=== PATIENT | male | born 1940 | race Caucasian/White ===

== ENCOUNTER → 2017-01-30 | Outpatient (CLI) | payer BC, MEDICARE ==
[2017-01-30 09:29] LABS: EKG EKG PERFORMED
[2017-01-30 10:16] LABS: Appearance,Urine Clear (Clear); Bilirubin,Urine Negative (Negative); Glucose,Urine (UA) Negative (Negative); Ketones,Urine Negative (Negative); Leukocyte Esterase,Urine Negative (Negative); Nitrite,Urine Negative (Negative); Protein,Urine Negative (Negative); UA Billing (MACRO vs. MICRO) CHEM
[2017-01-30 10:17] LABS: CH 32.2; CHCM 32.4; HCT 40.2 % (39.0-53.0); HDW 2.39; HGB 13.3 gm/dL (13.0-17.5); MCHC 33.1 g/dL (31.0-37.0); MCV 99.8 fL (80.0-100.0); Mean Platelet Volume 8.3; RBC 4.03 m/uL (4.30-5.90); RDW 13.9 % (11.5-15.5); WBC 4.5 k/uL (3.8-10.6)
[2017-01-30 10:20] LABS: INR 1.1 (<1.2); Partial Thromboplastin Time 24.8 sec (22.0-30.0); Prothrombin Time 10.7 sec (9.0-12.0)
[2017-01-30 10:36] LABS: ALT 25 U/L (21-72); AST 23 U/L (17-59); Alkaline Phosphatase 74 U/L (38-126); Anion Gap 10 mmol/L; Blood Urea Nitrogen 29 mg/dL (9-20); Calcium 9.9 mg/dL (8.4-10.2); Carbon Dioxide 28 mmol/L (22-30); Chloride 106 mmol/L (98-107); Glucose 99 mg/dL (74-99); Non-African American GFR(MDRD) >60 (>60 ml/min/1.73 sqM); Potassium 5.2 mmol/L (3.5-5.1); Sodium 144 mmol/L (137-145); Total Bilirubin 1.3 mg/dL (0.2-1.3); Total Protein 8.5 g/dL (6.3-8.2)
== END | disposition home or self-care (01) ==
LOC: LABPAT 09:18
PROVIDERS: ATTEND Orthopaedic Surgery
DX: Z01.810 Encounter for preprocedural cardiovascular examination (principal); Z01.812 Encounter for preprocedural laboratory examination; Z79.01 Long term (current) use of anticoagulants
CPT/HCPCS: 36415; 80053; 81003; 85027; 85610; 85730; 86850; 86900; 86901; 87070; 93005

== ENCOUNTER 2017-02-07 06:40 | Inpatient (IN) | payer BC, MEDICARE ==
[2017-02-02 11:19] VITALS: BMI 22.5
[~2017-02-07 06:40] MED LIST: ACETAMINOPHEN TAB 500 MG TAB PO ONE; HYDROmorphone 1 MG/ML 1 ML SYRINGE IVP PRN; MELOXICAM 7.5 MG TAB PO ONE; MORPHINE SULFATE 10 MG/ML SYRINGE IV PRN; ONDANSETRON 4 MG/2 ML VIAL IVP PRN; ROPIVACAINE 246.25 MG, EPINEPHrine 0.5 MG, KETOROLAC 30 MG, cloNIDine HCL/PF 80 MCG, WA... MISCELLANE ONE; TRANEXAMIC ACID 1,000 MG in SODIUM CHLORIDE 0.9% 100 ML IVPB ONE; ceFAZolin IN SWFI 2 GM/20 ML SYRINGE IVP ONE
[2017-02-07] MEDS: LACTATED RINGERS 1,000 ML IV SCH ×2 (07:22→11:58)
[2017-02-07] MEDS ORDERED: LIDOCAINE 1% INJ 10MG/ML (20 ML MDV) ONE (08:42)
[2017-02-07] MEDS ORDERED: SUCCINYLCHOLINE CHLORIDE 100 MG/5 ML SYR IV ONE (08:42)
[2017-02-07] MEDS ORDERED: MIDAZOLAM 2 MG/2 ML VIAL ONE (08:42)
[2017-02-07] MEDS ORDERED: PHENYLEPHRINE-0.9% NACL SYG 1 MG/10 ML SYRINGE ONE (08:42)
[2017-02-07] MEDS ORDERED: SODIUM CHLORIDE 0.9% 100 ML BAG ONE (08:42)
[2017-02-07] MEDS ORDERED: ePHEDrine SULFATE/0.9% NACL/PF 50 MG/5 ML SYRINGE IV ONE (08:42)
[2017-02-07] MEDS ORDERED: PROPOFOL 10 MG/ML 20 ML VIAL IV ONE (08:42)
[2017-02-07] MEDS ORDERED: TRANEXAMIC ACID 1,000 MG/10 ML VIAL ONE (08:42)
[2017-02-07] MEDS ORDERED: HEPARIN SODIUM,PORCINE 10,000 UNIT/ML 1 ML VIAL ONE (08:42)
[2017-02-07] MEDS ORDERED: fentaNYL (PF) 50 MCG/ML 2 ML AMP ONE (08:42)
[2017-02-07] MEDS ORDERED: LACTATED RINGERS 1,000 ML BAG IV ONE (08:42)
[2017-02-07] MEDS ORDERED: MAGNESIUM HYDROXIDE 2,400 MG/10 ML CUP PO PRN (08:56)
[2017-02-07] MEDS ORDERED: DIAZEPAM 5 MG TAB PO PRN ×2 (08:56)
[2017-02-07] MEDS ORDERED: ONDANSETRON 4 MG/2 ML VIAL IVP PRN ×2 (08:56→14:35)
[2017-02-07] MEDS ORDERED: HYDROcodone/APAP 5-325MG 1 EACH TAB PO PRN ×2 (08:56)
[2017-02-07] MEDS ORDERED: hydrOXYzine PAMOATE 25 MG CAP PO PRN (08:56)
[2017-02-07] MEDS ORDERED: HYDROmorphone 1 MG/ML 1 ML SYRINGE IVP PRN ×2 (08:56)
[2017-02-07] MEDS ORDERED: NALOXONE 0.4 MG/ML 1 ML VIAL IV PRN (08:56)
[2017-02-07] MEDS ORDERED: MELOXICAM 7.5 MG TAB PO SCH (09:00)
[2017-02-07] MEDS ORDERED: ceFAZolin 3,000 MG in SODIUM CHLORIDE 0.9% IRRIGATIO 3,000 ML IRRIGATION ONE (09:33)
--- NOTE | 2017-02-07 11:55 | XR ---
EXAMINATION TYPE: XR Hip Limited RT DATE OF EXAM: 02/07/2017 CLINICAL HISTORY: Right hip pain and osteoarthritis. TECHNIQUE: Single AP portable view of the right hip is obtained immediately postoperatively. COMPARISON: None. FINDINGS: Metallic hardware from right hip arthroplasty is seen and appears satisfactory in alignment and position. There is evidence of recent surgery with subcutaneous gas noted laterally. IMPRESSION: Metallic hardware from total right hip arthroplasty is satisfactory in position.
[2017-02-07] MEDS: SODIUM CHLORIDE 0.9% 1,000 ML IV SCH (12:28)
[2017-02-07] MEDS: APIXABAN 5 MG TAB PO SCH ×2 (12:31→20:09)
[2017-02-07] MEDS: HYDROmorphone 1 MG/ML 1 ML SYRINGE IVP PRN ×2 (13:56→16:49)
--- NOTE | 2017-02-07 13:57 | P.OP ---
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 The articulation is Oxinium on polyethylene. Crushed cancellus allograft, 30 mL Anesthesia: [place] Surgeon: Cleveland Dent Human Resources Technician #1: Radha Ayers Estimated Blood Loss (ml): 300 (135 mL returned with Cell Saver) Pathology: none sent Condition: stable Disposition: PACU Indications for Procedure: This is a 76-year-old gentleman that presented to my office with pain in his right hip. He has had a prior right total hip arthroplasty approximately 30 years ago. 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 Informed consent was obtained. 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 Description of Procedure: Patient was seen and evaluated in the preoperative area, consent was reviewed, and the surgical site was marked with a skin marker. Patient was then brought to the operating room and given prophylactic antibiotics intravenously. 1 g of Tranexamic acid was also given. A spinal anesthetic was administered by the anesthesia department. The patient was then placed on the operative table and placed in the lateral decubitus position with the bony prominences well-padded. After the patient was positioned, it was noted that the spinal anesthetic had not set. The patient was then given a general anesthetic. The hip area was then prepped and draped in usual sterile fashion. A universal timeout was then performed, which confirmed the patient's name, surgical site, ALLERGIES, and procedure being performed. Next the incision site was located in the lateral aspect of the hip, centered at the tip of the greater trochanter.. The skin and subcutaneous tissues were sharply incised, with the prior incision removed. Incision was carefully dissected down to the fascia. This fascia was then incised in line with the incision. Next, a Charnley retractor was then placed in the abductors were identified. The anterior one third of the abductors was released off the trochanter and one large sleeve. The anterior hip capsule was then exposed. The capsule was then opened. The proximal femur was then visualized, as well as the prosthesis.. The hip was then gently dislocated. The femoral neck was then osteotomized just below the femoral prosthesis. The femoral prosthesis was then removed without incident. The femoral neck cut was then osteotomized at the appropriate level above the lesser trochanter. Attention was then turned to the acetabulum. The acetabular component was exposed and any remaining scar was excised. Using curved osteotomes, acetabular component was then freed from any surrounding bone and easily removed with an osteotome and a mallet. The bone loss was found to be minimal. The acetabular was then visualized, found have significant ostial lysis. Sequential reaming of the acetabulum was performed to a bed of bleeding cancellus bone. When the appropriate size was reached, a trial was then placed. The trial was then removed. 30 mL of crushed cortical cancellus bone graft was placed to fill any voids in the bone. Then the final implant was impacted at 20 of anteversion and 40 of abduction, and fully seated in the acetabulum. Multiple screws were then placed in the acetabulum. Next, the liner was then impacted, with a 20 elevated liner located in the anterior superior quadrant. Component locking was confirmed. Attention was then directed to the femur. The proximal femurs reexposed. Retractors were then placed. A box osteotome was used to lateralize the proximal femur. A baggage handler was then used to locate the femoral canal. Sequential broaching was then performed with appropriate size which afforded excellent fixation in the proximal femur. A trial was then placed with appropriate head and neck, and the hip was gently reduced. The leg lengths were checked and found to be equal. Hip was then taken through full range of motion, was stable throughout. Next, the hip was gently dislocated, and the trials were removed. Final implants were then impacted and the hip was again reduced. The leg lengths were again examined and found to be equal. The hip was also taken through range of motion, and found to be stable. The hip was then copiously irrigated with antibiotic solution with pulsatile lavage. The hip was then irrigated with Irrisept solution. The soft tissues were then injected with ropivacaine solution. A second dose of 1 g of Tranexamic acid was given. The abductors were then repaired with #5 Ethibond suture with drill holes to the bone. The fascia was closed with #2 strata fix suture. The subcutaneous tissue was closed with 3-0 Vicryl. The subcuticular tissue was closed with 30 strata fix suture. The skin was then closed with Dermabond glue, followed by a silver sterile dressing. The patient was then transferred to the recovery room in stable condition. The Asst.CHRISTOPHER Sanchez was required due to the complexity of surgery, and the need for skilled surgical supervisor for positioning, draping, exposure, retraction, and closure of the wound.and closure of the wound.
[2017-02-07] MEDS ORDERED: METOCLOPRAMIDE 5 MG/ML 2 ML VIAL IVP PRN (14:35)
[2017-02-07] MEDS: ceFAZolin IN SWFI 2 GM/20 ML SYRINGE IVP SCH (16:11)
[2017-02-07] MEDS ORDERED: SCOPOLAMINE 1.5MG/72HR PATCH TRANSDERM STA (16:31)
[2017-02-07] MEDS: SENNOSIDES-DOCUSATE SODIUM 1 EACH TAB PO SCH (20:09)
[2017-02-08] MEDS ORDERED: ceFAZolin IN SWFI 2 GM/20 ML SYRINGE IVP ONE (01:00)
[2017-02-08] MEDS: ATORVASTATIN 20 MG TAB PO SCH ×2 (03:48→21:22)
[2017-02-08] MEDS: ceFAZolin IN SWFI 2 GM/20 ML SYRINGE IVP SCH (03:48)
[2017-02-08] MEDS: SODIUM CHLORIDE 0.9% 1,000 ML IV SCH ×2 (03:48→21:27)
[2017-02-08] MEDS: HYDROmorphone 1 MG/ML 1 ML SYRINGE IVP PRN (04:51)
--- NOTE | 2017-02-08 06:02 | CONS ---
CONSULTATION DATE OF CONSULTATION: 02/07/2017 REASON FOR CONSULTATION: Medical management requested by Dr. Dent. CONSULTATION: This is a pleasant 76-year-old patient of Dr. Riddle. Chronic stable medical conditions include osteoarthritis, emphysema, has a history of atrial fibrillation. The patient underwent revision of right total hip arthroplasty. Sitting up in a chair. Pain is controlled. No nausea or vomiting. No chest pain or short of breath. Family members at the bedside. REVIEW OF SYSTEMS: CONSTITUTIONAL: None. HEENT: None. RESPIRATORY: None. CARDIOVASCULAR: None. GASTROINTESTINAL: None. GENITOURINARY: None. MUSCULOSKELETAL: Aches and pains different joints. DERMATOLOGICAL: None. HEMATOLOGICAL: None. LYMPHATIC: None. PSYCHIATRY: None. NEUROLOGICAL: None. PAST HISTORY: Atrial fibrillation, osteoarthritis, emphysema, aortic valve replacement, back pain. PAST SURGICAL HISTORY: Back surgery, aortic valve replacement, cardiac catheterization, bilateral heels spur, bilateral carpal tunnel surgery, right hip replacement, neck surgery for pinched nerve. SOCIAL HISTORY: The patient did smoke in the past. No alcohol. . Used to do farming and worked in the factory. FAMILY HISTORY: Cancer, type unknown. HOME MEDICATIONS: 1. Spiriva 1 capsule p.o. daily. 2. Zocor 40 mg q.h.s. 3. Multivitamin 1 tab p.o. daily. 4. Combivent 2 puffs b.i.d. p.r.n. 5. Eliquis 5 mg p.o. b.i.d. 6. Tylenol. ALLERGIES: Allergies to. DOBUTAMINE, VICODIN PHYSICAL EXAMINATION: On examination, temperature 97.5, pulse 54, respirations 16, blood pressure 97/49, pulse ox 96% on room air. GENERAL APPEARANCE: Average built, sitting up in a chair, comfortable, awake. EYES: Pupils equal. Conjunctivae normal. HENT: Oral cavity normal. NECK: JVD not raised. Mass not palpable. RESPIRATORY: Effort normal. LUNGS: Slightly decreased breath sounds. CARDIOVASCULAR: First and second sounds normal. No edema. ABDOMEN: Soft, nontender. Liver and spleen not palpable. LYMPHATIC: No lymph nodes palpable in neck or axillae. PSYCHIATRY: Alert and oriented x3. Mood and affect normal. NEUROLOGICAL: Pupils equal. Cranial nerves grossly intact. Power and sensation grossly intact. DERMATOLOGICAL: Dressing over the right hip incision. INVESTIGATIONS: EKG shows right bundle branch block. Blood work from 01/30/17 shows a white count of 4.5, hemoglobin 13.3. Potassium was 4.2, BUN 29, creatinine 1.08. ASSESSMENT: 1. Revision right total hip arthroplasty. 2. Paroxysmal atrial fibrillation currently in sinus rhythm. 3. Right bundle branch block. 4. Primary osteoarthritis multiple joints. 5. Emphysema in an ex-smoker. 6. History of aortic valve replacement. PLAN: Home medications will be resumed. The patient has been put back on Eliquis. Care was discussed with the patient and family members at the bedside. Thank you Dr. Dent. MMJOSEL / IJN: [id number] /
[2017-02-08 07:10] LABS: Basophils % (A) 0 %; CHCM 31.9; Eosinophils % (A) 0 %; HCT 26.2 % (39.0-53.0); HDW 2.46; Luc # (Auto) 0.05; Luc % (Auto) 1; Lymphocytes % (A) 19 %; MCH 32.7 pg (25.0-35.0); MCHC 32.4 g/dL (31.0-37.0); Macrocytosis Slight; Mean Platelet Volume 8.8; Monocytes # (A) 0.5 k/uL (0-1.0); Monocytes % (A) 9 %; Neutrophils # (A) 3.8 k/uL (1.3-7.7); Neutrophils % (A) 71 %; RBC 2.59 m/uL (4.30-5.90); WBC 5.3 k/uL (3.8-10.6)
[2017-02-08 07:15] LABS: HGB 8.5 gm/dL (13.0-17.5)
[2017-02-08] MEDS: IPRATROPIUM 0.5 MG/2.5 ML NEBU INHALATION SCH ×5 (08:00→20:26)
[2017-02-08] MEDS: APIXABAN 5 MG TAB PO SCH ×2 (08:08→21:22)
[2017-02-08] MEDS ORDERED: traMADol 50 MG TAB PO PRN (08:32)
--- NOTE | 2017-02-08 08:41 | P.PN ---
Subjective Progress Note Date: 02/08/17 This is a 76-year-old male who is status post revision right total hip arthroplasty. This is postoperative day #1. Family is at bedside and state he has been somewhat confused morning. Patient is seen and evaluated at bedside with Dr. Cleveland Dent. Patient states his pain has been under control. Family states he has only been out of bed and into a chair so far. Patient has no new complaints today. Objective - Vital Signs Vital signs: Vital Signs Temp 98.8 F 02/08/17 07:00 Pulse 61 02/08/17 00:53 Resp 16 02/08/17 07:00 BP 114/68 02/08/17 07:00 Pulse Ox 94 L 02/08/17 07:00 Intake & Output 02/07/17 02/08/17 02/08/17 18:59 06:59 18:59 Intake Total 1881 747.5 Output Total 500 Balance 1381 747.5 Weight 65.317 kg Intake: IV 1521 Intake, IV Titration 747.5 Amount Sodium Chloride 0.9% 1, 747.5 000 ml @ 65 mls/hr IV . [id number] [facility] Rx#:[id number] Oral 360 Output: Urine 200 Estimated Blood Loss 300 Other: Voiding Method Urinal - Exam Vital signs are stable. Patient is in no acute distress and is alert and oriented 3. Calf is soft and nontender. Dressing is clean, dry, and intact. Neurovascular status intact. Patient has full foot and ankle motion. - Labs CBC & Chem 7: 02/08/17 05:57 02/07/17 07:15 Labs: Abnormal Lab Results - Last 24 Hours (Table) 02/08/17 Range/Units 05:57 RBC 2.59 L (4.30-5.90) m/uL Hgb 8.5 L D (13.0-17.5) gm/dL Hct 26.2 L (39.0-53.0) % MCV 101.0 H (80.0-100.0) fL Plt Count 111 L (150-450) k/uL Assessment and Plan (1) Failed total hip arthroplasty Current Visit: Yes Status: Acute Code(s): T84.018A - BROKEN INTERNAL JOINT PROSTHESIS, OTHER SITE, INIT ENCNTR; Z96.649 - PRESENCE OF UNSPECIFIED ARTIFICIAL HIP JOINT SNOMED Code(s): 284678943 (2) Status post revision of total hip replacement Current Visit: Yes Status: Acute Code(s): Z96.649 - PRESENCE OF UNSPECIFIED ARTIFICIAL HIP JOINT SNOMED Code(s): 577572031 Plan: Continue routine postop care. Continue hip precautions with abductor pillow Continue antocoagulation. Weightbearing as tolerated with a walker Leave dressing in place for 1 week Likely discharge to rehab Monday.
[2017-02-08 11:27] LABS: ALT 27 U/L (21-72); AST 27 U/L (17-59); Alkaline Phosphatase 46 U/L (38-126); Anion Gap 7 mmol/L; Blood Urea Nitrogen 25 mg/dL (9-20); Calcium 8.5 mg/dL (8.4-10.2); Carbon Dioxide 25 mmol/L (22-30); Chloride 105 mmol/L (98-107); Glucose 119 mg/dL (74-99); Non-African American GFR(MDRD) >60 (>60 ml/min/1.73 sqM); Potassium 4.6 mmol/L (3.5-5.1); Sodium 137 mmol/L (137-145); Total Bilirubin 0.8 mg/dL (0.2-1.3); Total Protein 5.8 g/dL (6.3-8.2)
--- NOTE | 2017-02-08 11:45 | XR ---
EXAMINATION TYPE: XR chest 1V DATE OF EXAM: 02/08/2017 CLINICAL HISTORY: Extended care facility placement. TECHNIQUE: Single AP portable frontal view of the chest is obtained. COMPARISON: None FINDINGS: Exam is suboptimal due to rotation and portable technique. Sternal wires are present. Ther e is left basilar opacity. Small right pleural effusion is felt present. There is mild cardiomegaly w ith atherosclerotic thoracic aorta. Visualized osseous structures are intact. IMPRESSION: Cardiomegaly with small right pleural effusion and patchy left basilar atelectasis and/or infiltrate noted.
[2017-02-08] MEDS: METOPROLOL TARTRATE 25 MG TAB PO SCH ×2 (12:17→21:22)
--- NOTE | 2017-02-08 12:34 | P.CRDCN ---
History of Present Illness Consult date: 02/08/17 History of present illness: This is a 76-year-old male with past medical history significant for chronic atrial fibrillation on residential anticoagulation with eliquis, prosthetic aortic valve and hyperlipidemia. He follows regularly with Dr. Coyle as an outpatient. We have been asked to see him for an episode of tachycardia in the post-operative setting s/p right hip arthroplasty revision yesterday. He was apparently found per nursing staff to have a heart rate in 130's. EKG was performed and reveals a wide complex tachycardia with no clear discernible P- waves. He denies chest pain, shortness of breath, dizziness, palpitations, diaphoresis, nausea or vomiting. He is confused at the time of my exam. Daughter and are at the bedside and states this is not his baseline he is typically alert and oriented x3. He did receive IV dilaudid earlier this morning. Per the he has a history of atrial fibrillation with controlled rate. He has had episodes of fast heart rate while hospitalized and metoprolol has been prescribed but once he goes home he becomes dizzy and cannot tolerate the metoprolol. He saw Dr. Coyle prior to surgery and had an echo that revealed preserved LV function with EF 55%, moderately dilated LA and RV, mild-moderate TR, mild pulmonic regurgitation and physiologic prosthetic valvular regurgitation. Hgb 8.5, plt 111, potassium 4.6, magnesium pending, TSH 1.49. Review of Systems CONSTITUTIONAL: Denies fever. Denies chills. EYES: Denies blurred vision. Denies vision changes. Denies eye pain. EARS, NOSE, MOUTH & THROAT: Denies headache. Denies sore throat. Denies ear pain. CARDIOVASCULAR: Denies chest pain. Denies shortness of breath. Denies orthopnea. Denies PND. Denies palpitations. RESPIRATORY: Denies cough. GASTROINTESTINAL: Denies abdominal pain. Denies diarrhea. Denies constipation. Denies nausea. Denies vomiting. MUSCULOSKELETAL: Denies myalgias. INTEGUMENTARY: Denies pruitis. Denies rash. NEUROLOGIC: Denies numbness. Denies tingling. Denies weakness. PSYCHIATRIC: Denies anxiety. Denies depression. ENDOCRINE: Denies fatigue. Denies weight change. Denies polydipsia. Denies polyurina. GENITOURINARY: Denies burning, hematuria or urgency with micturation. HEMATOLOGIC: Denies bleeding. Past Medical History Past Medical History: Atrial Fibrillation, Osteoarthritis (OA) Additional Past Medical History / Comment(s): EMPHYSEMA, AORTIC VALVE REPLACEMENT.,BACK PAIN., HAS "BOIL LIKE" SORE ON LEFT ARM - DR ATTEMPTED TO DRAIN IT- CHECKED BY DR LING. History of Any Multi-Drug Resistant Organisms: None Reported Past Surgical History: Back Surgery, Cardiac Valve Replacement, Heart Catheterization, Hernia Repair, Joint Replacement, Orthopedic Surgery Additional Past Surgical History / Comment(s): aortic valve replacement, saturnino heel spurs, saturnino carpal tunnel, rt hip replacement, neck surgery for pinched nerve, revision trh Past Anesthesia/Blood Transfusion Reactions: Postoperative Nausea & Vomiting ( PONV) Past Psychological History: No Psychological Hx Reported Smoking Status: Former smoker Past Alcohol Use History: None Reported Additional Past Alcohol Use History / Comment(s): SMOKED 1-2 PPD. QUIT SMOKING IN THE 'S. Past Drug Use History: None Reported - Past Family History Brother(s) Family Medical History: Cancer Medications and Allergies Home Medications Medication Instructions Recorded Confirmed Type Ipratropium/Albuterol Sulfate 2 puff INHALATION RT-BID PRN 07/03/14 02/07/17 History [Combivent Respimat Inhaler] Simvastatin [Zocor] 40 mg PO HS 07/03/14 02/07/17 History Acetaminophen Tab [Tylenol] 1,000 mg PO BID PRN 07/07/14 02/07/17 History Apixaban [Eliquis] 5 mg PO BID 02/02/17 02/07/17 History Multivitamin [Men's Multi-Vitamin] 1 tab PO DAILY 02/02/17 02/07/17 History Tiotropium 18 Mcg/Puff [Spiriva] 1 cap INHALATION RT-DAILY PRN 02/02/17 History Allergies Allergy/AdvReac Type Severity Reaction Status Date / Time dobutamine Allergy Rapid Verified 02/02/17 10:35 Heart Rate hydrocodone bitartrate Allergy "felt like Verified 02/02/17 10:35 [From Vicodin] skin crawling" Physical Exam Vitals: Vital Signs Temp Pulse Resp BP Pulse Ox 02/08/17 08:57 130 H 02/08/17 08:00 130 H 16 02/08/17 07:00 98.8 F 16 114/68 94 L 02/08/17 00:53 98.1 F 61 16 92/50 96 02/07/17 19:43 97.5 F L 54 L 16 97/69 96 02/07/17 16:25 59 L 17 128/58 97 02/07/17 14:30 62 106/56 02/07/17 14:15 58 L 88/44 02/07/17 14:00 60 89/41 02/07/17 13:45 128 H 114/66 02/07/17 13:30 59 L 103/54 02/07/17 13:15 57 L 84/46 02/07/17 13:00 57 L 111/54 02/07/17 12:45 59 L 104/53 02/07/17 12:30 96.9 F L 59 L 16 101/66 02/07/17 12:00 56 L 18 114/56 95 02/07/17 11:39 60 18 126/61 95 02/07/17 11:24 61 24 135/63 98 02/07/17 11:09 98.7 F 59 L 16 138/62 99 Intake and Output 02/07/17 02/08/17 02/08/17 22:59 06:59 14:59 Intake Total 347.5 520 Output Total 200 Balance 347.5 520 -200 Intake: Intake, IV Titration 227.5 520 Amount Sodium Chloride 0.9% 1, 227.5 520 000 ml @ 65 mls/hr IV . [id number] [facility] Rx#:[id number] Oral 120 Output: Urine 200 Other: Voiding Method Urinal Urinal Weight 65.317 kg Patient Weight 02/09/17 06:59 Weight 65.317 kg GENERAL: This is a 76-year-old male in no apparent distress at the time of my examination. HEENT: Head is atraumatic, normocephalic. Pupils are equal, round. Sclerae anicteric. Conjunctivae are clear. Mucous membranes of the mouth are moist. Neck is supple. There is no jugular venous distention. No carotid bruit is heard. LUNGS: Clear to auscultation no wheezes, rales or rhonchi. No chest wall tenderness is noted on palpation or with deep breathing. Diminished HEART: Irregular rate and rhythm with crisp prosthetic valve sound throughout, no rubs or gallops. S1 and S2 heard. ABDOMEN: Soft, nontender. Bowel sounds are heard. No organomegaly noted. EXTREMITIES: 2+ peripheral pulses with no evidence of peripheral edema and no calf tenderness noted. NEUROLOGIC: Patient is awake, alert and oriented x2. Results 02/08/17 05:57 02/08/17 05:55 CBC 02/08/17 Range/Units 05:57 WBC 5.3 (3.8-10.6) k/uL RBC 2.59 L (4.30-5.90) m/uL Hgb 8.5 L D (13.0-17.5) gm/dL Hct 26.2 L (39.0-53.0) % Plt Count 111 L (150-450) k/uL Current Medications Generic Name Dose Route Start Last Admin Trade Name Freq PRN Reason Stop Dose Admin Apixaban 5 mg 02/07/17 11:15 02/08/17 08:08 Eliquis PO 5 mg BID DARÍO Administration Atorvastatin Calcium 20 mg 02/07/17 22:15 02/08/17 03:48 Lipitor PO Not Given HS DARÍO Diazepam 2.5 mg 02/07/17 08:56 Valium PO Q8HR PRN Mild Spasms Diazepam 5 mg 02/07/17 08:56 Valium PO Q8HR PRN Moderate to Severe Spasms Hydromorphone HCl 0.125 mg 02/07/17 08:56 Dilaudid IVP Q3HR PRN Pain Scale 1 to 3 Hydromorphone HCl 0.25 mg 02/07/17 08:56 Dilaudid IVP Q3HR PRN Pain Scale 4 to 6 Hydromorphone HCl 0.5 mg 02/07/17 08:56 02/08/17 04:51 Dilaudid IVP 0.5 mg Q3HR PRN Administration Pain Scale 7 to 10 Hydroxyzine Pamoate 25 mg 02/07/17 08:56 Vistaril PO Q4HR PRN Nausea, Anxiety, Pain Control Lactated Ringer's 1,000 mls @ 20 mls/hr 02/06/17 16:45 02/07/17 11:58 Lactated Ringers IV Not Given .Q24H DARÍO Sodium Chloride 1,000 mls @ 65 mls/hr 02/07/17 09:00 02/08/17 03:48 Saline 0.9% IV Not Given .[id number] [facility] Ipratropium Harrells 0.5 mg 02/07/17 22:15 02/08/17 08:00 Atrovent Nebulized INHALATION Not Given RT-QID [facility] Magnesium Hydroxide 2,400 mg 02/07/17 08:56 Milk Of Magnesia PO DAILY PRN Constipation Metoclopramide HCl 10 mg 02/07/17 14:35 02/07/17 14:43 Reglan IVP 10 mg Q6HR PRN Administration Nausea WHEN ZOFRAN INEFFECTIVE Metoprolol Tartrate 25 mg 02/08/17 11:15 Lopressor PO BID [facility] Naloxone HCl 0.2 mg 02/07/17 08:56 Narcan IV Q2M PRN Opioid Reversal Ondansetron HCl 4 mg 02/07/17 14:35 Zofran IVP Q6HR PRN Nausea And Vomiting Senna/Docusate Sodium 2 each 02/07/17 21:00 02/07/17 20:09 Senokot-S PO 2 each HS [facility] Administration Tramadol HCl 50 mg 02/08/17 08:32 Ultram PO Q6H PRN Pain Scale 1 to 5 Tramadol HCl 100 mg 02/08/17 08:32 Ultram PO QID PRN Pain Scale 6 to 10 Intake and Output 02/07/17 02/08/17 02/08/17 22:59 06:59 14:59 Intake Total 347.5 520 Output Total 200 Balance 347.5 520 -200 Intake: Intake, IV Titration 227.5 520 Amount Sodium Chloride 0.9% 1, 227.5 520 000 ml @ 65 mls/hr IV . [id number] [facility] Rx#:[id number] Oral 120 Output: Urine 200 Other: Voiding Method Urinal Urinal Weight 65.317 kg Patient Weight 02/09/17 06:59 Weight 65.317 kg 02/08/17 05:57 02/07/17 07:15 Assessment and Plan Assessment: ASSESSMENT 1. Post operative day #1 right hip arthroplasty revision 2. Chronic atrial fibrillation with rapid ventricular response on exterminator helper anticoagulation 3. History of prosthetic aortic valve 4. Hyperlipidemia PLAN From cardiology perspective, we recommend placing him on telemetry monitoring and adding a small dose of beta be for rate control. This has been discussed with the as a temporary solution and this will be re-evaluated once he has stabilized. Check electrolytes and TSH. Repeat EKG in the morning. Continue with apixaban as was previously ordered for anticoagulation. Consider decreasing IV pain medication to avoid further confusion and possible post- operative delirium. Further recommendations will be based upon clinical course. Thank you kindly for this consultation. Nurse Practitioner note has been reviewed, I agree with a documented findings and plan of care. Patient was seen and examined.
[2017-02-08] MEDS: LACTATED RINGERS 1,000 ML IV SCH (15:24)
[2017-02-08] MEDS: traMADol 50 MG TAB PO PRN ×2 (15:26→21:21)
--- NOTE | 2017-02-08 18:45 | P.PN ---
Progress Note - Text Progress Note Date: 02/08/17 DATE OF SERVICE: 02/08/2017 PRESENTING COMPLAINT: Revision of right total hip arthroplasty HISTORY OF PRESENT ILLNESS: 76-year-old patient who is status post revision of right total hip arthroplasty. Patient has a history of atrial fibrillation on long-term anticoagulation. INTERVAL HISTORY: 02/08/2017: Patient lying in bed, very restless confused, not at his baseline according to family who is present at the bedside. Patient's heart rate has been in the 130s , patient does have a history of chronic atrial fibrillation which has been controlled, cardiology consulted. Appetite is low, ate about 20% of his breakfast, unable to work with physical therapy at this time. REVIEW OF SYSTEMS: Done for constitutional ,cardiovascular, GI, pulmonary with relevant findings as above. CURRENT MEDICATIONS Eliquis 5 mg by mouth twice a day, Lipitor, Valium, Dilaudid, Vistaril, Lopressor, Senokot-S, Ultram. PHYSICAL EXAM VITAL SIGNS: 98.8, pulse 1:30, respiratory rate 16, blood pressure 114/68, oxygen saturation 94% on room air. GENERAL APPEARANCE: Lying in bed, restless and somewhat confused EYES: Pupils equal. Conjunctiva normal. NECK: JVD not raised. Mass not palpable. RESPIRATORY: Respiratory effort normal. Lungs diminished to auscultation. CARDIOVASCULAR: Irregular rhythm No edema. ABDOMEN: Soft. Liver and spleen not palpable. No tenderness. No mass palpable. PSYCHIATRY: Alert and oriented x3. Mood and affect normal. INVESTIGATIONS: Hemoglobin 8.5, TSH 1.49 ASSESSMENT: -Revision of right total hip arthroplasty. -Paroxysmal atrial fibrillation, uncontrolled -Right bundle branch block -Primary osteoarthritis of multiple joints, bilateral area -Emphysema in an ex-smoker. -History of aortic valve replacement. -Postoperative Delirium, likely due to anesthetic agents PLAN: Patient started on a beta be even though he has a sensitivity per family. This as a temporizing measure to see how patient tolerates. Continue Eliquis. Minimize the use of IV pain medication, reorient patient. Continue current medication and treatment plan. We will follow closely. FOR[employer] CONTROLLER/AIR OFFICER statement: Patient was seen and examined by nurse practitioner Jacy Pineda and all elements of the case discussed with attending Dr. Flaherty
[2017-02-08] MEDS: SENNOSIDES-DOCUSATE SODIUM 1 EACH TAB PO SCH (21:21)
--- NOTE | 2017-02-08 22:30 | PN ---
PROGRESS NOTE DATE OF SERVICE: 02/08/2017 ATTENDING NOTE: Patient was seen and examined by me. I discussed with my nurse practitioner, Ms. Pineda. The patient is sitting up comfortably. Pain is controlled. Tolerating his diet. EXAM: LUNGS: Distant breath sounds. CARDIOVASCULAR: Heart sounds muffled. Temperature 98.8, pulse 130, respirations 16, blood pressure 114/68. Additionally, the patient has been a bit confused earlier today. ASSESSMENT: Acute delirium, probably a combination of pain medications and surgery, increased heart rate. Will order an EKG. The patient has a known history of atrial fibrillation. Care was discussed the patient and and the family at the bedside. Keep a close eye and follow. I suspect the increased heart rate could be atrial fibrillation with rapid ventricular rate. MMODL / IJN: [id number] /
[2017-02-09] MEDS: SODIUM CHLORIDE 0.9% 1,000 ML IV SCH (02:21)
[2017-02-09 02:53] VITALS: RESP 16
[2017-02-09] MEDS: IPRATROPIUM 0.5 MG/2.5 ML NEBU INHALATION SCH ×4 (08:18→19:16)
--- NOTE | 2017-02-09 08:43 | P.PN ---
Subjective Progress Note Date: 02/09/17 This is a 76-year-old male who is status post revision right total hip arthroplasty. This is postoperative day #2. Family is at bedside and states the patient has been less confused today. Family states the patient has been up and walking with therapy. Patient has no new complaints today. Objective - Vital Signs Vital signs: Vital Signs Temp 98.1 F 02/09/17 08:11 Pulse 96 02/09/17 08:20 Resp 16 02/09/17 08:11 BP 112/63 02/09/17 08:11 Pulse Ox 94 L 02/09/17 08:11 Intake & Output 02/08/17 02/09/17 02/09/17 18:59 06:59 18:59 Intake Total 350 455 180 Output Total 600 201 Balance -250 254 180 Weight 65.317 kg Intake: IV 350 Sodium Chloride 0.9% 1, 350 000 ml @ 65 mls/hr IV . [id number] [facility] Rx#:[id number] Intake, IV Titration 455 Amount Sodium Chloride 0.9% 1, 455 000 ml @ 65 mls/hr IV . [id number] [facility] Rx#:[id number] Oral 180 Output: Urine 600 201 Uretheral (Vences) 400 Other: Voiding Method Urinal Toilet - Exam Vital signs are stable. Patient is in no acute distress and is alert and oriented 3. Calf is soft and nontender. Dressing is clean, dry, and intact. Neurovascular status intact. Patient has full foot and ankle motion. - Labs CBC & Chem 7: 02/08/17 05:57 02/08/17 05:55 Labs: Abnormal Lab Results - Last 24 Hours (Table) 02/08/17 Range/Units 05:55 BUN 25 H (9-20) mg/dL Glucose 119 H (74-99) mg/dL Total Protein 5.8 L (6.3-8.2) g/dL Albumin 3.1 L (3.5-5.0) g/dL Assessment and Plan (1) Failed total hip arthroplasty Current Visit: Yes Status: Acute Code(s): T84.018A - BROKEN INTERNAL JOINT PROSTHESIS, OTHER SITE, INIT ENCNTR; Z96.649 - PRESENCE OF UNSPECIFIED ARTIFICIAL HIP JOINT SNOMED Code(s): 739824947 (2) Status post revision of total hip replacement Current Visit: Yes Status: Acute Code(s): Z96.649 - PRESENCE OF UNSPECIFIED ARTIFICIAL HIP JOINT SNOMED Code(s): 485260691 Plan: Continue routine postop care. Continue hip precautions with abductor pillow Continue antocoagulation. Weightbearing as tolerated with a walker Leave dressing in place for 1 week Likely discharge to rehab Monday.
[2017-02-09] MEDS ORDERED: HYDROmorphone 0.5 MG/0.5 ML SYRINGE IVP PRN ×3 (08:52→08:53)
[2017-02-09] MEDS: APIXABAN 5 MG TAB PO SCH ×2 (08:56→21:49)
[2017-02-09] MEDS: METOPROLOL TARTRATE 25 MG TAB PO SCH ×2 (08:56→19:49)
[2017-02-09] MEDS: traMADol 50 MG TAB PO PRN (08:57)
--- NOTE | 2017-02-09 09:53 | P.PN ---
Subjective Progress Note Date: 02/09/17 Mr. Cabezas is a 76-year-old male who follows with Dr. Coyle as an outpatient. We are seeing him today in follow-up from initial consultation for chronic a-fib with rapid ventricular rate yesterday. We added lopressor 25 mg BID to his daily regimen yesterday and his heart rate has come down nicely overnight but is elevated again this morning to 110 with blood pressure 112/63. This was prior to medication administration. He is also less confused and agitated today. He is seen sitting up in the chair with family in the room. He is alert and oriented x3. Denies chest pain, dizziness, palpitations, diaphoresis, nausea or vomiting. He states he got mildly short of breath while doing physical therapy this morning which subsided after doing a breathing treatment. The plan is for possible discharge to [facility] tomorrow per the . He has been transitioned to PO pain medication in the form of tramadol. Objective - Vital Signs Vital signs: Vital Signs Temp 98.1 F 02/09/17 08:11 Pulse 96 02/09/17 08:20 Resp 16 02/09/17 08:11 BP 112/63 02/09/17 08:11 Pulse Ox 94 L 02/09/17 08:11 Intake & Output 02/08/17 02/09/17 02/09/17 18:59 06:59 18:59 Intake Total 350 455 180 Output Total 600 201 Balance -250 254 180 Weight 65.317 kg Intake: IV 350 Sodium Chloride 0.9% 1, 350 000 ml @ 65 mls/hr IV . [id number] [facility] Rx#:[id number] Intake, IV Titration 455 Amount Sodium Chloride 0.9% 1, 455 000 ml @ 65 mls/hr IV . [id number] [facility] Rx#:[id number] Oral 180 Output: Urine 600 201 Uretheral (Vences) 400 Other: Voiding Method Urinal Toilet - Exam GENERAL: Well-appearing, well-nourished and in no acute distress. NECK: Supple without JVD or thyromegaly. LUNGS: Breath sounds clear to auscultation bilaterally. Respiration equal and unlabored. No wheezes, rales or rhonchi. Diminished throughout. HEART: Irregular rate and rhythm with crisp prosthetic valve, no rubs or gallops. S1 and S2 heard. EXTREMITIES: Normal range of motion, no edema. No clubbing or cyanosis. Peripheral pulses intact and strong. - Labs CBC & Chem 7: 02/08/17 05:57 02/08/17 05:55 Labs: Abnormal Lab Results - Last 24 Hours (Table) 02/08/17 Range/Units 05:55 BUN 25 H (9-20) mg/dL Glucose 119 H (74-99) mg/dL Total Protein 5.8 L (6.3-8.2) g/dL Albumin 3.1 L (3.5-5.0) g/dL Assessment and Plan Assessment: ASSESSMENT 1. Post operative day #2 right hip arthroplasty revision 2. Chronic atrial fibrillation with rapid ventricular response on intermediate anticoagulation 3. History of prosthetic aortic valve 4. Hyperlipidemia PLAN Continue with lopressor 25 mg PO BID and apixaban for anticoagulation. Continue with telemetry monitoring at this time to evaluate for rapid ventricular response. Repeat EKG in the morning. Nurse Practitioner note has been reviewed, I agree with a documented findings and plan of care. Patient was seen and examined.
--- NOTE | 2017-02-09 17:27 | PN ---
PROGRESS NOTE DATE OF SERVICE: 02/09/17. PRESENT COMPLAINT: Right knee surgery. INTERVAL HISTORY: Patient is status post right knee surgery, doing well. The patient's heart rate is better controlled. Patient's delirious is now resolved. Did tolerate a diet, sitting up smiling on a chair. REVIEW OF SYSTEMS: Done for constitutional, cardiovascular, GI, pulmonary; relevant findings as above. CURRENT MEDICATIONS: Reviewed that include Lipitor, Eliquis, Lopressor. PHYSICAL EXAMINATION: Temperature 98.1, pulse 110, respiration 16, blood pressure 112/63, pulse 94% on room air. GENERAL APPEARANCE: Sitting up in a chair, smiling. EYES: Pupils equal. Conjunctivae normal. NECK: JVD not raised. Mass about palpable. RESPIRATORY: Effort normal. Lungs decreased breath sounds. CARDIOVASCULAR: Heart sounds irregular. No edema. ABDOMEN: Psych awake, answering questions appropriately. ASSESSMENT: 1. Revision right total knee arthroplasty. 2. Paroxysmal atrial fibrillation, somewhat better controlled. 3. Right bundle block. 4. Primary osteoarthritis multiple joints, bilateral. 5. Emphysema in an ex-smoker. 6. History of aortic valve replacement. 7. Postop delirium due to multiple issues, now resolved. PLAN: Continue medication and treatment plan. Patient overall doing much better. Patient also making much better urine. MMODL / IJN: [id number] /
[2017-02-09] MEDS: LACTATED RINGERS 1,000 ML IV SCH (18:47)
[2017-02-09] MEDS: SENNOSIDES-DOCUSATE SODIUM 1 EACH TAB PO SCH (21:19)
[2017-02-09] MEDS: ACETAMINOPHEN TAB 500 MG TAB PO PRN (21:19)
[2017-02-09] MEDS: ATORVASTATIN 20 MG TAB PO SCH (21:49)
[2017-02-10] MEDS: SODIUM CHLORIDE 0.9% 1,000 ML IV SCH ×2 (02:59→06:46)
[2017-02-10 07:27] LABS: Basophils % (A) 0 %; CH 32.7; CHCM 33.6; Eosinophils # (A) 0.1 k/uL (0-0.7); Eosinophils % (A) 1 %; HCT 25.4 % (39.0-53.0); HDW 2.78; HGB 8.3 gm/dL (13.0-17.5); Luc # (Auto) 0.13; Luc % (Auto) 2; Lymphocytes % (A) 16 %; MCH 31.9 pg (25.0-35.0); MCHC 32.6 g/dL (31.0-37.0); Mean Platelet Volume 8.2; Monocytes # (A) 0.5 k/uL (0-1.0); Monocytes % (A) 8 %; Neutrophils # (A) 4.4 k/uL (1.3-7.7); Neutrophils % (A) 73 %; RDW 13.1 % (11.5-15.5); WBC (Perox) 6.25
[2017-02-10] MEDS: IPRATROPIUM 0.5 MG/2.5 ML NEBU INHALATION SCH ×3 (07:42→16:42)
[2017-02-10] MEDS ORDERED: METOPROLOL TARTRATE 50 MG TAB PO SCH (09:00)
[2017-02-10] MEDS: APIXABAN 5 MG TAB PO SCH (09:01)
[2017-02-10] MEDS ORDERED: ACETAMINOPHEN TAB 500 MG TAB PO PRN (09:14)
[2017-02-10] MEDS ORDERED: IPRATROPIUM-ALBUTEROL 3 ML NEB INHALATION PRN (09:14)
--- NOTE | 2017-02-10 09:14 | P.DS ---
Providers Date of admission: 02/07/17 06:40 Expected date of discharge: 02/10/17 Attending physician: Cleveland Dent Consults: 02/07/17 08:56 Consult Physician Routine Consulting Provider: August Flaherty Consult Reason/Comments: medical management and anticoagulation Do you want consulting provider notified?: Yes 02/08/17 09:55 Consult Physician Routine Consulting Provider: Angelina Balbuena Consult Reason/Comments: afib, tachycardia Do you want consulting provider notified?: Already Contacted Primary care physician: Jean-Pierre Riddle - Discharge Diagnosis(es) (1) Failed total hip arthroplasty Current Visit: Yes Status: Acute (2) Status post revision of total hip replacement Current Visit: Yes Status: Acute Hospital Course: This is a 76-year-old male with known history of a failed right total hip arthroplasty. The patient presents for evaluation. After discussion and consideration patient elects to proceed with revision total hip arthroplasty. The patient is seen preoperatively by Dr. Dent and cleared for surgery. Patient is admitted to [facility] on 02/07/2017 for revision total hip arthroplasty. The procedures performed without complication or sequelae. The patient is doing well postoperatively. Labs and vital signs are stable on day of discharge. On day of discharge patient's hip incision is healing well. There is minimal erythema. There is no drainage noted at this time. There is minimal soft tissue swelling to the hip and thigh. Patient has full foot and ankle motion without difficulty or pain. Neurovascular status to the right lower extremity is intact. Patient is discharged to rehab in good condition. Please see med rec for accurate list of home medications. Plan - Discharge Summary Discharge Rx Participant: Yes New Discharge Prescriptions: New Acetaminophen [Tylenol Extra Strength] 500 mg PO TID #90 tablet traMADol HCl [Ultram] 50 mg PO Q6H PRN #90 tab PRN Reason: Pain Apixaban [Eliquis] 5 mg PO BID 30 Days #60 tab Sennosides-Docusate Sodium [Senokot-S] 1 tab PO BID #60 tablet No Action Ipratropium/Albuterol Sulfate [Combivent Respimat Inhaler] 2 puff INHALATION RT-BID PRN PRN Reason: Shortness Of Breath Simvastatin [Zocor] 40 mg PO HS Acetaminophen Tab [Tylenol] 1,000 mg PO BID PRN PRN Reason: Pain Tiotropium 18 Mcg/Puff [Spiriva] 1 cap INHALATION RT-DAILY PRN PRN Reason: Shortness Of Breath Apixaban [Eliquis] 5 mg PO BID Multivitamin [Men's Multi-Vitamin] 1 tab PO DAILY Discharge Medication List Ipratropium/Albuterol Sulfate [Combivent Respimat Inhaler] 2 puff INHALATION RT- BID PRN 07/03/14 [History] Simvastatin [Zocor] 40 mg PO HS 07/03/14 [History] Acetaminophen Tab [Tylenol] 1,000 mg PO BID PRN 07/07/14 [History] Apixaban [Eliquis] 5 mg PO BID 02/02/17 [History] Multivitamin [Men's Multi-Vitamin] 1 tab PO DAILY 02/02/17 [History] Tiotropium 18 Mcg/Puff [Spiriva] 1 cap INHALATION RT-DAILY PRN 02/02/17 [History ] Acetaminophen [Tylenol Extra Strength] 500 mg PO TID #90 tablet 02/10/17 [Rx] Apixaban [Eliquis] 5 mg PO BID 30 Days #60 tab 02/10/17 [Rx] Sennosides-Docusate Sodium [Senokot-S] 1 tab PO BID #60 tablet 02/10/17 [Rx] traMADol HCl [Ultram] 50 mg PO Q6H PRN #90 tab 02/10/17 [Rx] Follow up Appointment(s)/Referral(s): Cleveland Dent DO [Doctor of Osteopathic Medicine] - 2 Weeks Activity/Diet/Wound Care/Special Instructions: Weightbearing as tolerated with walker Leave dressing intact. Dressing may be removed by home care nurse in 7 days, . May shower with dressing on. Continue use of abductor pillow and hip precautions Follow-up with [facility] in 2 weeks, please call with any questions or concerns [phone] Discharge Disposition: TRANSFER TO SNF/ECF
--- NOTE | 2017-02-10 09:40 | P.PN ---
Subjective Progress Note Date: 02/10/17 Mr. Cabezas is a 76-year-old male who follows with Dr. Coyle as an outpatient. We are seeing him today in follow-up from initial consultation for chronic a-fib with rapid ventricular rate yesterday. We added lopressor 25 mg BID to his daily regimen initially and his heart rate was fluctuating yesterday and this was increased to 50 mg BID. Upon talking to family they are concerned with increasing this too much secondary to his complaints of dizziness in the past with this medication. Heart rate this morning 111 with blood pressure 131/ 73. He is alert and oriented x3 today. Family states he has come episodes of agitation again yesterday evening and is now refusing to go to rehab. Family is discussing the option of taking him home instead. Denies chest pain, dizziness, palpitations, diaphoresis, nausea or vomiting. His daughter states he told her he was dizzy yesterday while sitting in bed. Objective - Vital Signs Vital signs: Vital Signs Temp 98.4 F 02/10/17 07:11 Pulse 111 H 02/10/17 07:11 Resp 16 02/10/17 07:11 BP 131/73 02/10/17 07:11 Pulse Ox 96 02/10/17 01:10 Intake & Output 02/09/17 02/10/17 02/10/17 18:59 06:59 18:59 Intake Total 680 325 Output Total 1 200 Balance 679 125 Weight 65.317 kg Intake: IV 500 325 Sodium Chloride 0.9% 1, 500 325 000 ml @ 65 mls/hr IV . [id number] [facility] Rx#:[id number] Oral 180 Output: Urine 1 200 Other: Voiding Method Toilet Urinal Urinal # Voids 2 3 # Bowel Movements 1 - Exam GENERAL: Well-appearing, well-nourished and in no acute distress. NECK: Supple without JVD or thyromegaly. LUNGS: Breath sounds clear to auscultation bilaterally. Respiration equal and unlabored. No wheezes, rales or rhonchi. Diminished. HEART: Irregular rate and rhythm with crisp prosthetic valve, no rubs or gallops. S1 and S2 heard. EXTREMITIES: Normal range of motion, no edema. No clubbing or cyanosis. Peripheral pulses intact and strong. - Labs CBC & Chem 7: 02/10/17 06:34 02/08/17 05:55 Labs: Abnormal Lab Results - Last 24 Hours (Table) 02/10/17 Range/Units 06:34 RBC 2.60 L (4.30-5.90) m/uL Hgb 8.3 L (13.0-17.5) gm/dL Hct 25.4 L (39.0-53.0) % Plt Count 135 L (150-450) k/uL Assessment and Plan Assessment: ASSESSMENT 1. Post operative day #3 right hip arthroplasty revision 2. Chronic atrial fibrillation with rapid ventricular response on half-way anticoagulation 3. History of prosthetic aortic valve 4. Hyperlipidemia PLAN Discontinue Lopressor and start verapamil 80 mg TID for heart rate control. I have discussed this with the family and they are in agreement and understanding of the current plan. He should see Dr. Coyle in 1-2 weeks. The need and importance of inpatient physical therapy was also recommended. Nurse Practitioner note has been reviewed, I agree with a documented findings and plan of care. Patient was seen and examined.
[2017-02-10] MEDS: ACETAMINOPHEN TAB 500 MG TAB PO PRN ×2 (10:28→17:45)
[2017-02-10] MEDS: VERAPAMIL 80 MG TAB PO SCH ×2 (10:28→16:49)
[2017-02-10 14:56] VITALS: TEMP 98.2
[2017-02-10 16:01] VITALS: PULSE 73
--- NOTE | 2017-02-10 16:05 | P.PN ---
Progress Note - Text Progress Note Date: 02/10/17 DATE OF SERVICE: 02/10/2017 PRESENTING COMPLAINT: Revision of right total hip arthroplasty HISTORY OF PRESENT ILLNESS: 76-year-old patient who is status post revision of right total hip arthroplasty. Patient has a history of atrial fibrillation on long-term anticoagulation. INTERVAL HISTORY: 02/10/2017: Patient sitting up in a chair and daughter at the bedside, patient is able to answer simple straightforward questions but family states patient's mentation changes throughout the day. History of chronic atrial fibrillation, heart rate has been elevated. Cardiology following. Appetite improving, ate about 50% of his breakfast and about 75% of his lunch. Agreeable to work with physical therapy, plans to discharge to inpatient rehab. REVIEW OF SYSTEMS: Done for constitutional ,cardiovascular, GI, pulmonary with relevant findings as above. CURRENT MEDICATIONS Eliquis 5 mg by mouth twice a day, Lipitor, Valium, Dilaudid, Vistaril, Lopressor, Senokot-S, Ultram. Verapamil 80 mg by mouth 3 times a day PHYSICAL EXAM VITAL SIGNS: 98.8, pulse 1:30, respiratory rate 16, blood pressure 114/68, oxygen saturation 94% on room air. GENERAL APPEARANCE: Sitting up in a chair family at the bedside appears comfortable EYES: Pupils equal. Conjunctiva normal. NECK: JVD not raised. Mass not palpable. RESPIRATORY: Respiratory effort normal. Lungs diminished to auscultation. CARDIOVASCULAR: Irregular rhythm No edema. ABDOMEN: Soft. Liver and spleen not palpable. No tenderness. No mass palpable. PSYCHIATRY: Patient's mentation waxes and wanes on exam alert and oriented 3. Mood and affect normal. INTEGUMENT: Right hip incision covered with dry dressing. INVESTIGATIONS: Hemoglobin 8.3 ASSESSMENT: -Revision of right total hip arthroplasty. -Paroxysmal atrial fibrillation, somewhat better controlled -Right bundle branch block -Primary osteoarthritis of multiple joints, bilateral -Emphysema in an ex-smoker. -History of aortic valve replacement. -Postoperative Delirium, likely due to anesthetic agents, now resolved PLAN: Beta be discontinued and verapamil initiated by cardiology. Continue Eliquis. Continue to work with physical therapy. Patient to transfer today to inpatient rehab. MINK SLICER statement: Patient was seen and examined by nurse practitioner Jacy Pineda and all elements of the case discussed with attending Dr. Flaherty
[2017-02-10 16:22] VITALS: BP 92/64
[2017-02-10] MEDS: LACTATED RINGERS 1,000 ML IV SCH (17:47)
--- NOTE | 2017-02-10 20:59 | PN ---
PROGRESS NOTE ATTENDING NOTE: The patient was seen and examined by me. I discussed with the nurse practitioner, Ms. Pineda. The patient is doing well, sitting up, tolerating a diet. Family members at the bedside. Mentation has done well. Tolerating a diet. PHYSICAL EXAMINATION: Temperature 98.4, respiration 16, blood pressure 139/73, pulse ox 96% on room air. Sitting up, comfortable, smiling, answering questions. CARDIOVASCULAR: Heart sounds ABDOMEN: Soft, nontender. ASSESSMENT: Atrial fibrillation, rate better controlled. PLAN: Cardiology did switch the Lopressor to Verapamil. Overall patient is doing better. Getting Eliquis for his anticoagulation. Care was discussed with the family at the bedside. MMODL / IJN: [id number] /
[2017-02-10] MEDS ORDERED: APIXABAN 5 MG TAB PO SCH (21:00)
[2017-02-11] MEDS ORDERED: MULTIVITAMINS, THERA 1 EACH TAB PO SCH (12:00)
== END 2017-02-10 17:50 | DRG 467 ==
LOC: 2ORMAIN 06:40 → 3SUR 10:57
PROVIDERS: ADMIT Orthopaedic Surgery; ATTEND Orthopaedic Surgery
PROC: 0SR906A Replacement of Right Hip Joint with Oxidized Zirconium on Polyethylene Synthetic Substitute, Uncemented, Open Approach (ICD-10-PCS; principal; 2017-02-07 09:30)
PROC: 0SP90JZ Removal of Synthetic Substitute from Right Hip Joint, Open Approach (ICD-10-PCS; principal; 2017-02-07 09:30)
DX: T84.060A Wear of articular bearing surface of internal prosthetic right hip joint, initial encounter (principal); F05 Delirium due to known physiological condition; I48.0 Paroxysmal atrial fibrillation; J43.9 Emphysema, unspecified; I37.1 Nonrheumatic pulmonary valve insufficiency; I45.10 Unspecified right bundle-branch block; E78.5 Hyperlipidemia, unspecified; I07.1 Rheumatic tricuspid insufficiency; M19.91 Primary osteoarthritis, unspecified site; T41.45XA Adverse effect of unspecified anesthetic, initial encounter; Z95.2 Presence of prosthetic heart valve; Z87.891 Personal history of nicotine dependence; Z79.01 Long term (current) use of anticoagulants; Z79.899 Other long term (current) drug therapy; Z88.5 Allergy status to narcotic agent; Z88.8 Allergy status to other drugs, medicaments and biological substances; Y79.2 Prosthetic and other implants, materials and accessory orthopedic devices associated with adverse incidents
CPT/HCPCS: 71010; 73501; 80053; 83735; 84132; 84443; 85025; 86850; 86891; 86900; 86901; 88300; 93005; 94640

== ENCOUNTER 2020-06-11 04:16 | Inpatient (IN) | payer MEDICARE, BC ==
[2020-06-11] MEDS ORDERED: SODIUM CHLORIDE 0.9% 1,000 ML IV STA (04:18)
--- NOTE | 2020-06-11 04:19 | ED ---
Recheck HPI - General Stated Complaint: Weakness Time Seen by Provider: 06/11/20 04:18 Source: RN notes reviewed, old records reviewed Mode of arrival: EMS Limitations: altered mental status - History of Present Illness Initial Comments: This is a 79-year-old male who is accepted in transfer, patient complex medical history from atrial fibrillation and aortic valve repair cancer COPD. Patient is accepted as a transfer for cardiac arrest. Patient did have return of spontaneous circulation at outside facility and transferred to our hospital, blood pressures been low heart rate and low patient is mentating MD Complaint: abnormal lab -: days(s) Returns Today for: Called Because of Abnormal Lab/Test, persistent/worsening pain related to initial visit Symptoms Since Prior Visit: no new symptoms (Although heart rate remains low blood pressure remains low) Context: planned re-check, called for abnormal lab result (Patient transferred for critical care and evaluation) Associated Symptoms: chills, shortness of breath, other (Generalized pain) Treatments Prior to Arrival: other (Patient has return of spontaneous circulation with CPR) - Related Data Home Medications Medication Instructions Recorded Confirmed Ipratropium/Albuterol Sulfate 2 puff INHALATION RT-BID PRN 07/03/14 06/11/20 [Combivent Respimat Inhaler] Simvastatin 40 mg PO HS 06/11/20 06/11/20 Previous Rx's Medication Instructions Recorded Apixaban [Eliquis] 5 mg PO BID 30 Days #60 tab 02/10/17 traMADol HCl [Ultram] 50 mg PO Q6H PRN #90 tab 02/10/17 Allergies Allergy/AdvReac Type Severity Reaction Status Date / Time dobutamine Allergy Rapid Verified 02/02/17 10:35 Heart Rate hydrocodone bitartrate Allergy "felt like Verified 02/02/17 10:35 [From Vicodin] skin crawling" Review of Systems ROS Statement: Those systems with pertinent positive or pertinent negative responses have been documented in the HPI. ROS Other: All systems not noted in ROS Statement are negative. Past Medical History Past Medical History: Atrial Fibrillation, Osteoarthritis (OA) Additional Past Medical History / Comment(s): EMPHYSEMA, AORTIC VALVE REPLACEMENT.,BACK PAIN., HAS "BOIL LIKE" SORE ON LEFT ARM - DR ATTEMPTED TO DRAIN IT- CHECKED BY DR LING. History of Any Multi-Drug Resistant Organisms: None Reported Past Surgical History: Back Surgery, Cardiac Valve Replacement, Heart Catheterization, Hernia Repair, Joint Replacement, Orthopedic Surgery Additional Past Surgical History / Comment(s): aortic valve replacement, [place] heel spurs, [place] carpal tunnel, rt hip replacement, neck surgery for pinched nerve, revision trh Past Anesthesia/Blood Transfusion Reactions: Postoperative Nausea & Vomiting (PONV) Past Psychological History: No Psychological Hx Reported Past Alcohol Use History: None Reported Additional Past Alcohol Use History / Comment(s): SMOKED 1-2 PPD. QUIT SMOKING IN THE S. Past Drug Use History: None Reported - Past Family History Brother(s) Family Medical History: Cancer Father Family Medical History: Diabetes Mellitus Mother Family Medical History: Congestive Heart Failure (CHF) General Exam Limitations: altered mental status General appearance: alert, anxious, lethargic, in distress Head exam: Present: atraumatic, normocephalic, normal inspection Eye exam: Present: normal appearance, PERRL, EOMI. Absent: scleral icterus, conjunctival injection, periorbital swelling ENT exam: Present: normal exam, mucous membranes moist Neck exam: Present: normal inspection. Absent: tenderness, meningismus, lymphadenopathy Respiratory exam: Present: accessory muscle use, decreased breath sounds, prolonged expiratory. Absent: respiratory distress, wheezes, rales, rhonchi, stridor Cardiovascular Exam: Present: bradycardia, tachycardia, irregular rhythm, normal heart sounds. Absent: systolic murmur, diastolic murmur, rubs, gallop, clicks GI/Abdominal exam: Present: soft, normal bowel sounds. Absent: distended, tenderness, guarding, rebound, rigid Extremities exam: Present: normal inspection, full ROM, normal capillary refill. Absent: tenderness, pedal edema, joint swelling, calf tenderness Back exam: Present: normal inspection Neurological exam: Present: alert, oriented X3, CN II-XII intact Psychiatric exam: Present: normal affect, normal mood Skin exam: Present: warm, dry, intact, normal color. Absent: rash Course Vital Signs 06/11/20 06/11/20 06/11/20 04:18 04:57 05:15 Temperature 98.2 F Pulse Rate 100 104 H 98 Respiratory 18 16 16 Rate Blood Pressure 80/60 75/45 60/48 O2 Sat by Pulse 94 L 94 L 94 L Oximetry 06/11/20 06/11/20 06:23 08:30 Temperature 99.6 F Pulse Rate 120 H 114 H Respiratory 16 7 L Rate Blood Pressure 96/53 107/68 O2 Sat by Pulse 96 98 Oximetry - Reevaluation(s) Reevaluation #1: Medical record is reviewed Patient remains in significant distress here in the emergency department second ross to bradycardia hypotension and status post cardiac arrest Patient has central line placed given significant hemodynamic support and patient symptoms are improving This is family is informed of results Transferring paperwork has been reviewed as well as speaking with transferring physician - Consultations Consultation #1: Spoke with ICU regarding admission there agreeable Procedures - Central Line Placement Right IJ Consent Obtained: verbal consent Patient Placed on Monitor/Pulse Ox: Yes MD Prep: mask, gown, gloves Central Line Prep: Povidone-Iodine 1% Local Anesthesia Used: Lidocaine 1% Ultrasound Used for Placement: Yes Central Line Lumen Inserted: triple Bloods Obtained for Lab: Yes Central Line Position: good blood return, all ports aspirated, flushed, capped, sutured in place with 3-0 nylon Dressing Applied: Tegaderm, sterile gauze/tape Post Procedure X-Ray: tip of catheter in good position Patient Tolerated Procedure: well Complications: none Medical Decision Making - Medical Decision Making 79 male status post cardiac arrest, bradycardic with hypotensive, central line placed hemodynamic support is given - Lab Data Result diagrams: 06/13/20 03:37 06/13/20 03:37 Lab Results 06/11/20 06/11/20 06/11/20 Range/Units 04:56 04:56 04:56 WBC 5.5 (3.8-10.6) k/uL RBC 2.80 L (4.30-5.90) m/uL Hgb 9.3 L (13.0-17.5) gm/dL Hct 28.0 L (39.0-53.0) % MCV 99.9 (80.0-100.0) fL MCH 33.4 (25.0-35.0) pg MCHC 33.4 (31.0-37.0) g/dL RDW 14.6 (11.5-15.5) % Plt Count 144 L (150-450) k/uL MPV 8.1 Neutrophils % Not Reportable Neutrophils % (Manual) 29 % Band Neuts % (Manual) 19 % Lymphocytes % Not Reportable Lymphocytes % (Manual) 22 % Monocytes % Not Reportable Monocytes % (Manual) 30 % Eosinophils % Not Reportable Basophils % Not Reportable Neutrophils # Not Reportable Neutrophils # (Manual) 2.60 (1.3-7.7) k/uL Lymphocytes # Not Reportable Lymphocytes # (Manual) 1.21 (1.0-4.8) k/uL Monocytes # Not Reportable Monocytes # (Manual) 1.65 H (0-1.0) k/uL Eosinophils # Not Reportable Basophils # Not Reportable Nucleated RBCs 0 (0-0) /100 WBC Differential Comment Manual Slide Review Performed Toxic Granulation Present Hypochromasia Moderate Poikilocytosis (manual Present Anisocytosis (manual) Present Macrocytosis Slight Ovalocytes Present PT 12.4 H (9.0-12.0) sec INR 1.2 H (<1.2) APTT 26.1 (22.0-30.0) sec Sodium 138 (137-145) mmol/L Potassium 4.9 (3.5-5.1) mmol/L Chloride 112 H (98-107) mmol/L Carbon Dioxide 17 L (22-30) mmol/L Anion Gap 9 mmol/L BUN 37 H (9-20) mg/dL Creatinine 1.92 H (0.66-1.25) mg/dL Est GFR (CKD-EPI)AfAm 38 (>60 ml/min/1.73 sqM) Est GFR (CKD-EPI)NonAf 32 (>60 ml/min/1.73 sqM) Glucose 110 H (74-99) mg/dL Plasma Lactic Acid Angel (0.7-2.0) mmol/L Calcium 7.6 L (8.4-10.2) mg/dL Phosphorus 2.7 (2.5-4.5) mg/dL Magnesium 1.5 L (1.6-2.3) mg/dL Total Bilirubin 2.4 H (0.2-1.3) mg/dL AST 23 (17-59) U/L ALT 9 (4-49) U/L Alkaline Phosphatase 82 (38-126) U/L Creatine Kinase 75 (55-170) U/L CK-MB (CK-2) (0.0-2.4) ng/mL Troponin I (0.000-0.034) ng/mL NT-Pro-B Natriuret Pep pg/mL Total Protein 6.0 L (6.3-8.2) g/dL Albumin 3.1 L (3.5-5.0) g/dL Urine Color Urine Appearance (Clear) Urine pH (5.0-8.0) Ur Specific [place] (1.001-1.035) Urine Protein (Negative) Urine Glucose (UA) (Negative) Urine Ketones (Negative) Urine Blood (Negative) Urine Nitrite (Negative) Urine Bilirubin (Negative) Urine Urobilinogen (<2.0) mg/dL Ur Leukocyte Esterase (Negative) Urine RBC (0-5) /hpf Urine WBC (0-5) /hpf Ur Squamous Epith Cells (0-4) /hpf Urine Bacteria (None) /hpf Hyaline Casts (0-2) /lpf Urine Mucus (None) /hpf Coronavirus (PCR) (Not Detectd) 06/11/20 06/11/20 06/11/20 Range/Units 04:56 04:56 04:56 WBC (3.8-10.6) k/uL RBC (4.30-5.90) m/uL Hgb (13.0-17.5) gm/dL Hct (39.0-53.0) % MCV (80.0-100.0) fL MCH (25.0-35.0) pg MCHC (31.0-37.0) g/dL RDW (11.5-15.5) % Plt Count (150-450) k/uL MPV Neutrophils % Neutrophils % (Manual) % Band Neuts % (Manual) % Lymphocytes % Lymphocytes % (Manual) % Monocytes % Monocytes % (Manual) % Eosinophils % Basophils % Neutrophils # Neutrophils # (Manual) (1.3-7.7) k/uL Lymphocytes # Lymphocytes # (Manual) (1.0-4.8) k/uL Monocytes # Monocytes # (Manual) (0-1.0) k/uL Eosinophils # Basophils # Nucleated RBCs (0-0) /100 WBC Differential Comment Manual Slide Review Toxic Granulation Hypochromasia Poikilocytosis (manual Anisocytosis (manual) Macrocytosis Ovalocytes PT (9.0-12.0) sec INR (<1.2) APTT (22.0-30.0) sec Sodium (137-145) mmol/L Potassium (3.5-5.1) mmol/L Chloride (98-107) mmol/L Carbon Dioxide (22-30) mmol/L Anion Gap mmol/L BUN (9-20) mg/dL Creatinine (0.66-1.25) mg/dL Est GFR (CKD-EPI)AfAm (>60 ml/min/1.73 sqM) Est GFR (CKD-EPI)NonAf (>60 ml/min/1.73 sqM) Glucose (74-99) mg/dL Plasma Lactic Acid Angel 2.8 H* (0.7-2.0) mmol/L Calcium (8.4-10.2) mg/dL Phosphorus (2.5-4.5) mg/dL Magnesium (1.6-2.3) mg/dL Total Bilirubin (0.2-1.3) mg/dL AST (17-59) U/L ALT (4-49) U/L Alkaline Phosphatase (38-126) U/L Creatine Kinase (55-170) U/L CK-MB (CK-2) 1.9 (0.0-2.4) ng/mL Troponin I 0.047 H* (0.000-0.034) ng/mL NT-Pro-B Natriuret Pep 5310 pg/mL Total Protein (6.3-8.2) g/dL Albumin (3.5-5.0) g/dL Urine Color Urine Appearance (Clear) Urine pH (5.0-8.0) Ur Specific [place] (1.001-1.035) Urine Protein (Negative) Urine Glucose (UA) (Negative) Urine Ketones (Negative) Urine Blood (Negative) Urine Nitrite (Negative) Urine Bilirubin (Negative) Urine Urobilinogen (<2.0) mg/dL Ur Leukocyte Esterase (Negative) Urine RBC (0-5) /hpf Urine WBC (0-5) /hpf Ur Squamous Epith Cells (0-4) /hpf Urine Bacteria (None) /hpf Hyaline Casts (0-2) /lpf Urine Mucus (None) /hpf Coronavirus (PCR) (Not Detectd) 06/11/20 06/11/20 Range/Units 05:14 05:14 WBC (3.8-10.6) k/uL RBC (4.30-5.90) m/uL Hgb (13.0-17.5) gm/dL Hct (39.0-53.0) % MCV (80.0-100.0) fL MCH (25.0-35.0) pg MCHC (31.0-37.0) g/dL RDW (11.5-15.5) % Plt Count (150-450) k/uL MPV Neutrophils % Neutrophils % (Manual) % Band Neuts % (Manual) % Lymphocytes % Lymphocytes % (Manual) % Monocytes % Monocytes % (Manual) % Eosinophils % Basophils % Neutrophils # Neutrophils # (Manual) (1.3-7.7) k/uL Lymphocytes # Lymphocytes # (Manual) (1.0-4.8) k/uL Monocytes # Monocytes # (Manual) (0-1.0) k/uL Eosinophils # Basophils # Nucleated RBCs (0-0) /100 WBC Differential Comment Manual Slide Review Toxic Granulation Hypochromasia Poikilocytosis (manual Anisocytosis (manual) Macrocytosis Ovalocytes PT (9.0-12.0) sec INR (<1.2) APTT (22.0-30.0) sec Sodium (137-145) mmol/L Potassium (3.5-5.1) mmol/L Chloride (98-107) mmol/L Carbon Dioxide (22-30) mmol/L Anion Gap mmol/L BUN (9-20) mg/dL Creatinine (0.66-1.25) mg/dL Est GFR (CKD-EPI)AfAm (>60 ml/min/1.73 sqM) Est GFR (CKD-EPI)NonAf (>60 ml/min/1.73 sqM) Glucose (74-99) mg/dL Plasma Lactic Acid Angel (0.7-2.0) mmol/L Calcium (8.4-10.2) mg/dL Phosphorus (2.5-4.5) mg/dL Magnesium (1.6-2.3) mg/dL Total Bilirubin (0.2-1.3) mg/dL AST (17-59) U/L ALT (4-49) U/L Alkaline Phosphatase (38-126) U/L Creatine Kinase (55-170) U/L CK-MB (CK-2) (0.0-2.4) ng/mL Troponin I (0.000-0.034) ng/mL NT-Pro-B Natriuret Pep pg/mL Total Protein (6.3-8.2) g/dL Albumin (3.5-5.0) g/dL Urine Color Dark Yellow Urine Appearance Cloudy (Clear) Urine pH 5.5 (5.0-8.0) Ur Specific [place] 1.027 (1.001-1.035) Urine Protein 2+ H (Negative) Urine Glucose (UA) Negative (Negative) Urine Ketones Negative (Negative) Urine Blood Large H (Negative) Urine Nitrite Negative (Negative) Urine Bilirubin 1+ H (Negative) Urine Urobilinogen 2.0 (<2.0) mg/dL Ur Leukocyte Esterase Trace H (Negative) Urine RBC 78 H (0-5) /hpf Urine WBC 16 H (0-5) /hpf Ur Squamous Epith Cells 1 (0-4) /hpf Urine Bacteria Rare H (None) /hpf Hyaline Casts 10 H (0-2) /lpf Urine Mucus Rare H (None) /hpf Coronavirus (PCR) Not Detected (Not Detectd) - EKG Data -: EKG Interpreted by Me (EKG A. fib RVR 114 QRS 134 QTC 501) - Radiology Data Radiology results: report reviewed (Chest x-rays negative for acute disease), image reviewed Critical Care Time Critical Care Time: Yes Total Critical Care Time: 31 Disposition Clinical Impression: Atrial fibrillation, Cardiac arrhythmia, Bradycardia, Cardiopulmonary arrest, Atrial fibrillation with RVR, ARF (acute renal failure), H/O aortic valve replacement Disposition: ADMITTED IP TO THIS HOSP Condition: Critical Is patient prescribed a controlled substance at d/c from ED?: No
[2020-06-11] MEDS ORDERED: LORazepam 2 MG/ML INJ IV STA (04:34)
[2020-06-11] MEDS ORDERED: MORPHINE SULFATE 4 MG/ML SYRINGE IVP STA (04:41)
[2020-06-11] MEDS: NOREPINEPHRINE 32 MG in SODIUM CHLORIDE 0.9% 218 ML IV SCH (05:11)
[2020-06-11 05:18] LABS: INR 1.2 (<1.2); Partial Thromboplastin Time 26.1 sec (22.0-30.0); Prothrombin Time 12.4 sec (9.0-12.0)
[2020-06-11 05:24] LABS: HGB 9.3 gm/dL (13.0-17.5); Hypochromasia Moderate; MCH 33.4 pg (25.0-35.0); MCHC 33.4 g/dL (31.0-37.0); MCV 99.9 fL (80.0-100.0); Macrocytosis Slight; Mean Platelet Volume 8.1; Platelet Count 144 k/uL (150-450); RDW 14.6 % (11.5-15.5); WBC 5.5 k/uL (3.8-10.6)
--- NOTE | 2020-06-11 05:28 | XR ---
EXAM: XR Chest, 1 View CLINICAL HISTORY: ITS.REASON XR Reason: line placement TECHNIQUE: Frontal view of the chest. COMPARISON: 06/10/20 FINDINGS: Lungs: Overall increased interstitial lung markings, unchanged. Low lung volumes accentuates cardiovascular silhouette and lung markings. Slight increasing opacity in the right lower lung which may represent small right effusion or right basilar airspace disease/atelectasis. Pleural space: Unremarkable. No pneumothorax. Heart: Cardiovascular silhouette is enlarged and unchanged. Mediastinum: Mediastinum calcified tortuous thoracic aorta, unchanged. Bones/joints: Status post median sternotomy. Tubes, lines and devices: Interval placement of right-sided central venous catheter, tip projecting over the right lower cardiac border likely in the right atrium. Overlying chest leads obscure portion of the chest. IMPRESSION: 1. Interval placement of right-sided central venous catheter, tip likely in the right atrium. 2. No pneumothorax. 3. Mild edema/congestion. Low lung volume 4. Suspect small right effusion and/or developing right basilar airspace disease/atelectasis
[2020-06-11 05:40] LABS: Albumin 3.1 g/dL (3.5-5.0); Calcium 7.6 mg/dL (8.4-10.2); Magnesium 1.5 mg/dL (1.6-2.3); Phosphorus 2.7 mg/dL (2.5-4.5); Potassium 4.9 mmol/L (3.5-5.1); Total Bilirubin 2.4 mg/dL (0.2-1.3)
[2020-06-11] MEDS ORDERED: NITROGLYCERIN SL TABS 0.4 MG TAB SUBLINGUAL PRN (05:43)
[2020-06-11] MEDS ORDERED: NALOXONE 0.4 MG/ML 1 ML VIAL IV PRN (05:43)
[2020-06-11] MEDS ORDERED: ASPIRIN 81 MG PO STA (05:43)
[2020-06-11] MEDS ORDERED: MORPHINE SULFATE 4 MG/ML SYRINGE IV PRN (05:43)
[2020-06-11 05:51] LABS: Creatine Kinase MB 1.9 ng/mL (0.0-2.4)
[2020-06-11 06:09] LABS: Troponin I 0.047 ng/mL (0.000-0.034)
[2020-06-11 06:13] LABS: Appearance,Urine Cloudy (Clear); Bacteria,Urine Rare /hpf; Bilirubin,Urine 1+ (Negative); Blood,Urine Large (Negative); Color,Urine Dark Yellow; Glucose,Urine (UA) Negative (Negative); Hyaline Casts,Urine 10 /lpf (0-2); Ketones,Urine Negative (Negative); Leukocyte Esterase,Urine Trace (Negative); Mucus,Urine Rare /hpf; Nitrite,Urine Negative (Negative); PH, Urine 5.5 (5.0-8.0); Protein,Urine 2+ (Negative); RBC,Urine 78 /hpf (0-5); Specific Gravity,Urine 1.027 (1.001-1.035); Squamous Epithelial Cell,Urine 1 /hpf (0-4); WBC,Urine 16 /hpf (0-5)
[2020-06-11 06:35] LABS: Lymphocytes # (M) 1.21 k/uL (1.0-4.8); Monocytes # (M) 1.65 k/uL (0-1.0); Nucleated Red Blood Cells 0 /100 WBC (0-0)
[2020-06-11 06:36] LABS: Anisocytosis (M) Present; Band Neutrophils % 19 %; Neutrophils % (M) 29 %; Poikilocytosis (M) Present; Total Cells Counted 200; Toxic Granulation Present
[2020-06-11 06:37] LABS: Ovalocytes Present
[2020-06-11] MEDS: SODIUM CHLORIDE 0.9% 1,000 ML IV SCH ×3 (06:52→21:12)
[2020-06-11] MEDS: MAGNESIUM SULFATE-D5W PMX 1 GM in DEXTROSE/WATER 1 100ML.BAG IVPB SCH ×2 (06:52→08:14)
[2020-06-11] MEDS ORDERED: traMADol 50 MG TAB PO PRN (07:00)
[2020-06-11 08:32] LABS: Glucose,Whole Blood 135 mg/dL (75-99)
[2020-06-11] MEDS ORDERED: AMIODARONE 360 MG in DEXTROSE 5% IN WATER 200 ML IV ONE ×2 (09:45)
[2020-06-11] MEDS ORDERED: DEXTROSE 5% IN WATER 100 ML with AMIODARONE 150 MG IV ONE (09:45)
--- NOTE | 2020-06-11 11:15 | P.CNPUL ---
History of Present Illness Consult date: 06/11/20 Requesting physician: Anel Lopez Reason for consult: dyspnea, other (Critical care management) Chief complaint: Cardiac arrest History of present illness: This is a 79-year-old gentleman who follows with Dr. Riddle as his primary care provider. He has a history of rectal cancer, COPD, atrial fibrillation with AVR, posttraumatic stress disorder, hyperlipidemia, DJD, dementia him a aortic valve replacement. The patient was taken to [facility] after developing increasing shortness of breath and altered mental status. He sustained a brief cardiopulmonary arrest requiring CPR. He was subsequently transferred here to the emergency room. He is seen this morning in the ER in consultation. He is arousable but not speaking clearly. Maintaining O2 saturations in the 90s on 3 L/m per nasal cannula. He is currently on norepinephrine at 5 mcg/m. 0.9 normal saline at 130 ML's per hour. He is found to be in atrial fibrillation with a rapid ventricular response. Amiodarone drip was initiated at 1 mg/m. He is anticoagulated with Eliquis. Chest x-ray reveals evidence of mild xenia ma/congestion and a small right effusion. White count 5.5. Hemoglobin 9.3. Platelet count 144. Sodium 138. Potassium 4.9. Creatinine 1.92. Lactic acid 2.4. Troponin 0.06. ProBNP 5310. Hoffman virus not detected. Urine culture pending. Review of Systems ROS unobtainable: due to mental status Past Medical History Past Medical History: Atrial Fibrillation, Cancer, COPD, Eye Disorder, GI Bleed, Hyperlipidemia, Osteoarthritis (OA), Pneumonia Additional Past Medical History / Comment(s): Chronic Afib, possible early dementia/sundowners/occasionally pt is confused or hallucinates, recent UTI treated with antibiotic, rectal bleeds, rectal/anal cancer November 2019 with surgery/colostomy and colostomy reversal April 2020-pt has had some stool incontinence since reversal, bilateral cataracts, arthritis mostly in back/hips, DDD. History of Any Multi-Drug Resistant Organisms: None Reported Past Surgical History: Back Surgery, Cardiac Valve Replacement, Heart Catheterization, Hernia Repair, Joint Replacement, Orthopedic Surgery Additional Past Surgical History / Comment(s): 11/2019 colonoscopy/rectal/anal surgery d/t cancer with colostomy, 04/2020 reversal of colostomy, aortic valve replaced/prosthetic, R total hip with later revision, bilateral carpal tunnel releases, bilateral heel spurs removed, cervical surgery for pinched nerve, bilateral inguinal hernia repairs Past Anesthesia/Blood Transfusion Reactions: Postoperative Nausea & Vomiting (PONV) Additional Past Anesthesia/Blood Transfusion Reaction / Comment(s): Pt has received blood in past without reaction. Smoking Status: Former smoker - Past Family History Father Family Medical History: Diabetes Mellitus Mother Family Medical History: Congestive Heart Failure (CHF) Brother(s) Family Medical History: Cancer Medications and Allergies Home Medications Medication Instructions Recorded Confirmed Type Ipratropium/Albuterol Sulfate 2 puff INHALATION RT-BID PRN 07/03/14 06/11/20 History [Combivent Respimat Inhaler] Apixaban [Eliquis] 5 mg PO BID 30 Days #60 tab 02/10/17 06/11/20 Rx traMADol HCl [Ultram] 50 mg PO Q6H PRN #90 tab 02/10/17 06/11/20 Rx Simvastatin 40 mg PO HS 06/11/20 06/11/20 History Allergies Allergy/AdvReac Type Severity Reaction Status Date / Time dobutamine Allergy Rapid Verified 02/02/17 10:35 Heart Rate hydrocodone bitartrate Allergy "felt like Verified 02/02/17 10:35 [From Vicodin] skin crawling" Physical Exam Vitals: Vital Signs Temp Pulse Resp BP Pulse Ox 06/11/20 10:15 106 H 16 160/95 95 06/11/20 10:00 98 17 100/73 93 L 06/11/20 09:45 123 H 13 101/69 94 L 06/11/20 09:30 135 H 15 102/72 93 L 06/11/20 09:15 126 H 48 H 101/73 98 06/11/20 09:00 116 H 20 93/53 98 06/11/20 08:45 116 H 17 107/69 98 06/11/20 08:30 99.6 F 114 H 7 L 107/68 98 06/11/20 06:23 120 H 16 96/53 96 06/11/20 05:15 98 16 60/48 94 L 06/11/20 04:57 104 H 16 75/45 94 L 06/11/20 04:18 98.2 F 100 18 80/60 94 L Intake and Output 06/10/20 06/11/20 06/11/20 22:59 06:59 14:59 Intake Total 0.829 368.933 Output Total 60 Balance 0.829 308.933 Intake: IV 360 Magnesium Sulfate-D5w Pmx 100 1 gm In Dextrose/Water 1 100ml.bag @ 100 mls/hr IVPB Q1H DARÍO Rx#: [id number] Sodium Chloride 0.9% 1, 260 000 ml @ 130 mls/hr IV . Q7H42M STA Rx#:[id number] Intake, IV Titration 0.829 8.933 Amount Norepinephrine 32 mg In 0.829 8.933 Sodium Chloride 0.9% 218 ml @ 0.05 MCG/KG/MIN 1. 382 mls/hr IV .Q24H DARÍO Rx#:[id number] Output: Urine 60 Other: Weight 58.967 kg 58.967 kg GENERAL EXAM: Alert, real, cachectic 79-year-old gentleman, on 3 L nasal cannula comfortable in no apparent distress. HEAD: Normocephalic. EYES: Normal reaction of pupils, equal size. NOSE: Clear with pink turbinates. THROAT: No erythema or exudates. NECK: No masses, no JVD. CHEST: No chest wall deformity. LUNGS: Equal air entry with crackles in the bilateral posterior bases. CVS: S1 and S2 normal with no audible murmur, regular rhythm. ABDOMEN: No hepatosplenomegaly, normal bowel sounds, no guarding or rigidity. SPINE: No scoliosis or deformity SKIN: No rashes CENTRAL NERVOUS SYSTEM: No focal deficits, tone is normal in all 4 extremities. EXTREMITIES: There is no peripheral edema. No clubbing, no cyanosis. Peripheral pulses are intact. Results - Laboratory Findings CBC and BMP: 06/11/20 04:56 06/11/20 04:56 PT/INR, D-dimer PT 12.4 sec (9.0-12.0) H 06/11/20 04:56 INR 1.2 (<1.2) H 06/11/20 04:56 Abnormal lab findings: Abnormal Labs 06/11/20 06/11/20 06/11/20 04:56 04:56 04:56 RBC 2.80 L Hgb 9.3 L Hct 28.0 L Plt Count 144 L Monocytes # (Manual) 1.65 H PT 12.4 H INR 1.2 H Chloride 112 H Carbon Dioxide 17 L BUN 37 H Creatinine 1.92 H Glucose 110 H POC Glucose (mg/dL) Plasma Lactic Acid Angel Calcium 7.6 L Magnesium 1.5 L Total Bilirubin 2.4 H Troponin I Total Protein 6.0 L Albumin 3.1 L Urine Protein Urine Blood Urine Bilirubin Ur Leukocyte Esterase Urine RBC Urine WBC Urine Bacteria Hyaline Casts Urine Mucus 06/11/20 06/11/20 06/11/20 04:56 04:56 05:14 RBC Hgb Hct Plt Count Monocytes # (Manual) PT INR Chloride Carbon Dioxide BUN Creatinine Glucose POC Glucose (mg/dL) Plasma Lactic Acid Angel 2.8 H* Calcium Magnesium Total Bilirubin Troponin I 0.047 H* Total Protein Albumin Urine Protein 2+ H Urine Blood Large H Urine Bilirubin 1+ H Ur Leukocyte Esterase Trace H Urine RBC 78 H Urine WBC 16 H Urine Bacteria Rare H Hyaline Casts 10 H Urine Mucus Rare H 06/11/20 06/11/20 06/11/20 08:30 09:11 09:57 RBC Hgb Hct Plt Count Monocytes # (Manual) PT INR Chloride Carbon Dioxide BUN Creatinine Glucose POC Glucose (mg/dL) 135 H Plasma Lactic Acid Angel 2.4 H* Calcium Magnesium Total Bilirubin Troponin I 0.060 H* Total Protein Albumin Urine Protein Urine Blood Urine Bilirubin Ur Leukocyte Esterase Urine RBC Urine WBC Urine Bacteria Hyaline Casts Urine Mucus - Diagnostic Findings Chest x-ray: image reviewed Assessment and Plan Assessment: 1 Acute cardiopulmonary arrest requiring brief CPR and an outside facility, not intubated 2 Atrial fibrillation with rapid ventricular response, anticoagulated with Eliquis 3 Acute exacerbation of her suspected diastolic congestive heart failure 4 History of prosthetic aortic valve replacement 5 Dementia 6 History of rectal cancer 7 History of chronic obstructive pulmonary disease 8 History of previous chronic tobacco dependence 9 Post traumatic stress disorder 11 Hyperlipidemia 12 Degenerative joint disease Plan: The patient was seen and evaluated by Dr. Aguilar Chest x-ray, labs reviewed Remains on norepinephrine for pressure support Amiodarone for control of the A. fib with RVR Anticoagulated with Eliquis Continue bronchodilators Repeat chest x-ray and labs in the a.m. We will continue to follow and make further recommendations based on his clinical status Patient is to remain a full code per family members I, the cosigning physician, performed a history & physical examination of the patient. Lungs sounds with crackles in the bilateral posterior bases. Maintaining good O2 saturations in the 90s on 3 L/m per nasal cannula. I disc ussed the assessment and plan of care with my nurse practitioner, Amanda Ames. I attest to the above note as dictated by her. Time with Patient: Greater than 30
[2020-06-11 12:18] LABS: Glucose,Whole Blood 115 mg/dL (75-99)
[2020-06-11] MEDS: APIXABAN 5 MG TAB PO SCH ×2 (12:31→20:12)
--- NOTE | 2020-06-11 13:36 | CONS ---
CONSULTATION This is a 79-year-old gentleman transferred from [facility] with what appears to be an unusual situation when he went there with atrial fibrillation and a rapid ventricular rate. Cardizem was given. He became hypotensive requiring a brief CPR. However, this gentleman does have a history of aortic valve replacement with mechanical valve and chronic atrial fibrillation, COPD, history of rectal cancer and dementia. He sees Dr. Coyle in the office and his last echo from April of 2019 revealed that the aortic valve was stable, ejection fraction was in the 50% range and he has mild to moderate pulmonary hypertension. He came into the hospital and after arrival he seems to be still in atrial fib with moderate rate of about 110 to 120. His urine output is very low. He looks somewhat emaciated and dehydrated clinically. He has been given IV fluid as well. However, he is on 8 mcg of Levophed to support his blood pressure. PAST MEDICAL HISTORY: 1. Status post mechanical aortic valve replacement and valve has been stable by echo about a year ago. 2. Chronic atrial fibrillation. 3. COPD, past history of smoking. 4. History of degenerative joint disease. The patient had a Lexiscan stress test in the office which was unremarkable for ischemia in October of 2019. MEDICATIONS: Medications at home include Eliquis 5 mg b.i.d., simvastatin 40 mg daily, and albuterol inhaler and tramadol. ALLERGIES: He is allergic to DOBUTAMINE and VICODIN. PHYSICAL EXAMINATION: On examination, blood pressure is about 102 on Levophed, pulse rate is about 110, irregular, IVCD noted. HEENT: Unremarkable. Fundus was not examined by me. Neck is supple. No JVD. S1, S2 heard normally with a prosthetic valve clicks which are crisp. Lungs reveal bilateral diminished air entry. Abdomen is soft. Lower extremities reveal diminished pulses. Central nervous system assessment was not performed. The patient appears to be very lethargic and does not communicate well. IMPRESSION: 1. Atrial fibrillation which is chronic with faster ventricular rate. 2. I am very concerned that he may have some sepsis. 3. History of mechanical aortic valve replacement that was performed several years ago. Valve was stable on echo about a year ago. 4. History of gastrointestinal bleeding in the past. RECOMMENDATIONS: I would recommend a full septic workup including blood cultures as well as urine culture. I am recommending that we continue support with Levophed. Echocardiogram will be performed. We will give him amiodarone to help control the ventricular rate since Cardizem would induce further hypotension. Prognosis remains guarded and based on clinical course I will make further recommendations. LATOSHA / IJN: [id number] /
--- NOTE | 2020-06-11 14:00 | ECHOF ---
Referral Reason:LV function; HX AVR MEASUREMENTS -------- HEIGHT: 172.7 cm WEIGHT: 59.0 kg BP: 96/53 RVIDd: 3.6 cm (< 3.3) IVSd: 1.2 cm (0.6 - 1.1) LVIDd: 4.0 cm (3.9 - 5.3) LVPWd: 1.1 cm (0.6 - 1.1) IVSs: 1.7 cm LVIDs: 3.1 cm LVPWs: 1.4 cm LA Diam: 3.5 cm (2.7 - 3.8) Ao Diam: 3.0 cm (2.0 - 3.7) MV EXCURSION: 23.601 mm (> 18.000) MV EF SLOPE: 256 mm/s (70 - 150) EPSS: 0.6 cm AV maxP.31 mmHg AV meanP.56 mmHg RAP: 15.00 mmHg RVSP: 37.72 mmHg FINDINGS -------- Atrial fibrillation. This was a technically difficult study with suboptimal views. The left ventricular size is normal. There is borderline concentric left ventricular hypertrophy. Overall left ventricular systolic function is moderate-severely impaired with, an EF between 30 - 35 %. The right ventricle is mildly enlarged. The left atrium is normal in size. The right atrium is normal in size. 3 ml of Lumason was utilized for enhancement of images. Interatrial and interventricular septum intact. Trace to mild aortic regurgitation. Peak/mean gradient across the Aortic Valve is 26.31mmHg / 13.56 mmHg. Normally functioning mechanical prosthetic valve. The mitral valve leaflets are mildly thickened. Mild mitral annular calcification present. Modera te mitral regurgitation is present. Moderate tricuspid regurgitation present. There is mild pulmonary hypertension. The right ventric ular systolic pressure, as measured by Doppler, is 37.72mmHg. The pulmonic valve was not well visualized. The aortic root size is normal. The inferior vena cava is dilated with no significant inspiratory collapse which is consistent estima gini right atrial pressure of >15 mmHg. There is no pericardial effusion. CONCLUSIONS -------- 1. The left ventricular size is normal. 2. There is borderline concentric left ventricular hypertrophy. 3. Overall left ventricular systolic function is moderate-severely impaired with, an EF between 30 - 35 %. 4. The right ventricle is mildly enlarged. 5. 3 ml of Lumason was utilized for enhancement of images. 6. Trace to mild aortic regurgitation. 7. Peak/mean gradient across the Aortic Valve is 26.31mmHg / 13.56mmHg. 8. Normally functioning mechanical prosthetic valve. 9. The mitral valve leaflets are mildly thickened. 10. Mild mitral annular calcification present. 11. Moderate mitral regurgitation is present. 12. Moderate tricuspid regurgitation present. 13. There is mild pulmonary hypertension. 14. The right ventricular systolic pressure, as measured by Doppler, is 37.72mmHg. 15. The inferior vena cava is dilated with no significant inspiratory collapse which is consistent es timated right atrial pressure of >15 mmHg. 16. There is no pericardial effusion. [facility] ATTENDANT: Nika Mercado RDCS
[2020-06-11] MEDS: AMIODARONE 450 MG in DEXTROSE 5% IN WATER 250 ML IV SCH ×2 (16:52)
[2020-06-11] MEDS: INSULIN ASPART (NovoLOG) 100 UNIT/ML VIAL SQ SCH (17:20)
[2020-06-11 17:21] LABS: Glucose,Whole Blood 101 mg/dL (75-99)
[2020-06-11] MEDS ORDERED: ENOXAPARIN 60 MG/0.6 ML SYRINGE SQ ONE (18:00)
--- NOTE | 2020-06-11 19:48 | XR ---
EXAMINATION TYPE: XR KUB portable DATE OF EXAM: 06/11/2020 COMPARISON: NONE HISTORY: Abnormal distention TECHNIQUE: Single view FINDINGS: Bowel gas pattern is normal. There is no sign of intestinal obstruction or pneumoperitoneum . Fecal pattern is normal. There is right hip prosthesis. 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 IMPRESSION: Nonacute abdomen.
[2020-06-11] MEDS: ATORVASTATIN 20 MG TAB PO SCH (20:13)
[2020-06-12 01:06] LABS: Glucose,Whole Blood 100 mg/dL (75-99)
[2020-06-12] MEDS: INSULIN ASPART (NovoLOG) 100 UNIT/ML VIAL SQ SCH ×4 (01:51→17:53)
[2020-06-12 04:48] LABS: Basophils % (A) 0 %; Eosinophils % (A) 0 %; HCT 31.9 % (39.0-53.0); HGB 9.7 gm/dL (13.0-17.5); Hypochromasia Marked; Lymphocytes # (A) 0.9 k/uL (1.0-4.8); Lymphocytes % (A) 8 %; MCH 31.1 pg (25.0-35.0); MCHC 30.3 g/dL (31.0-37.0); MCV 102.7 fL (80.0-100.0); Macrocytosis Slight; Mean Platelet Volume 8.7; Monocytes # (A) 0.9 k/uL (0-1.0); Monocytes % (A) 8 %; Neutrophils # (A) 9.4 k/uL (1.3-7.7); Neutrophils % (A) 82 %; Platelet Count 160 k/uL (150-450); RDW 14.6 % (11.5-15.5); WBC 11.4 k/uL (3.8-10.6)
[2020-06-12 05:06] LABS: Calcium 7.6 mg/dL (8.4-10.2); Magnesium 2.2 mg/dL (1.6-2.3); Potassium 5.2 mmol/L (3.5-5.1)
[2020-06-12 05:41] LABS: Glucose,Whole Blood 109 mg/dL (75-99)
--- NOTE | 2020-06-12 07:48 | XR ---
EXAMINATION TYPE: XR chest 1V DATE OF EXAM: 06/12/2020 CLINICAL HISTORY: Difficulty breathing progress study. TECHNIQUE: Single AP portable semiupright view of the chest is obtained. COMPARISON: Chest x-ray from one day earlier FINDINGS: Stable right internal jugular central venous catheter. Persistent cardiomegaly with atherosclerotic thoracic aorta. Overlying sternal wires. Small bilateral pleural effusions on current study slightly more prominent from prior. Associated bibasilar atelecta sis. Bilateral hilar prominence suggests underlying pulmonary artery hypertension. Osseous structures are intact. Elevated left hemidiaphragm redemonstrated. IMPRESSION: Cardiomegaly with small bilateral pleural effusions and associated bibasilar atelectasis and/or infiltrates. Effusion slightly more prominent from one day earlier.
[2020-06-12] MEDS: IPRATROPIUM-ALBUTEROL 3 ML NEB INHALATION PRN ×2 (08:27→11:48)
[2020-06-12] MEDS: AMIODARONE 450 MG in DEXTROSE 5% IN WATER 250 ML IV SCH ×8 (08:29→23:09)
[2020-06-12] MEDS: PANTOPRAZOLE 40 MG/10 ML VIAL IVP SCH (08:31)
[2020-06-12] MEDS: ENOXAPARIN 60 MG/0.6 ML SYRINGE SQ SCH ×2 (08:43→22:00)
[2020-06-12] MEDS: NOREPINEPHRINE 32 MG in SODIUM CHLORIDE 0.9% 218 ML IV SCH (08:51)
[2020-06-12] MEDS ORDERED: ASPIRIN 325 MG TAB PO SCH (09:00)
--- NOTE | 2020-06-12 09:15 | PN ---
PROGRESS NOTE Mr. Cabezas is a 79-year-old gentleman with an aortic valve mechanical prosthesis. He was admitted yesterday with atrial fibrillation, RVR, hypotension. Clinical picture suggested that of sepsis, but patient's cultures are not growing anything yet. He remains on amiodarone drip. The rate is better controlled. He is on a very small dose of Levophed. He is making a fair amount of urine today. However, his swallowing __suspect ___and he does not communicate very well. He is not taking oral medications and I am recommending Lovenox 60 mg subcu q.12 hours. We will also continue amiodarone IV and 0.5 mg dose since patient cannot take oral medications. PHYSICAL EXAMINATION: Blood pressure is about 108/60, pulse rate is in the 92, irregular. JVD 1 cm. No carotid bruit. S1, S2 with irregular rate and rhythm noted. Lungs reveal diminished air entry. Abdomen is soft. Lower extremities reveal diminished pulses. Central nervous system assessment was not performed. RECOMMENDATIONS: I am recommending that we continue IV amiodarone and Lovenox. Hold oral medications until his swallowing issue is clarified. MMODL / IJN: [id number] / MTDD
--- NOTE | 2020-06-12 09:40 | P.HPIM ---
History of Present Illness This is a pleasant 79 years old male with past medical history of chronic atrial fibrillation on Eliquis, COPD, GI bleed, hyperlipidemia, osteoarthritis, possible dementia, recent UTI, rectal bleeding, history of rectal cancer and status post surgical resection with reversal of colostomy on April 2020. Patient was transferred to [facility] due to confusion and dyspnea, she is status post short period of CPR for a brief cardiopulmonary arrest. pt is poor historian and could not provide information, he opens eyes to verbal stimuli and can smile but not answer appropriately pt was recently on cipro for UTI On admission he was hypotensive blood pressure 75/45 and 60/48 with tachycardia 100-120. He was hypoxic, and currently saturating 96% on 33 oxygen via nasal cannula. Afebrile. Labs showing stable CBC with WBC 5.5, hemoglobin 9.3 and platelets 144. INR is 1.2. INR is up to 1.9 compared to baseline of 1.1. Lactic acid is elevated at 2.62.8. Troponin is elevated at 0.04-0.08. ProBNP is 5310. Urine analysis showing large blood with WBC 16 and RBCs 78. Coronavirus not detected EKG showed atrial fibrillation with RVR at 114 Chest x-ray: Interval placement of right sided central catheter, no pne umothorax, mild edema/congestion, atelectasis Patient start on Levoohed missed pulmonary/critical care team on the case Also he is on amiodarone drip, continued with Eliquis Review of Systems CONSTITUTIONAL: No fever, no malaise, no fatigue. HEENT: No recent visual problems or hearing problems. Denied any sore throat. CARDIOVASCULAR: No orthopnea, PND, no palpitations, no syncope. PULMONARY: No shortness of breath, no cough, no hemoptysis. GASTROINTESTINAL: No diarrhea, no nausea, no vomiting, no abdominal pain. Normoactive bowel sounds. NEUROLOGICAL: No headaches, no weakness, no numbness. HEMATOLOGICAL: Denies any bleeding or petechiae. GENITOURINARY: Denies any burning micturition, frequency, or urgency. MUSCULOSKELETAL/RHEUMATOLOGICAL: Denies any joint pain, swelling, or any muscle pain. ENDOCRINE: Denies any polyuria or polydipsia. Past Medical History Past Medical History: Atrial Fibrillation, Cancer, COPD, Eye Disorder, GI Bleed, Hyperlipidemia, Osteoarthritis (OA), Pneumonia Additional Past Medical History / Comment(s): Chronic Afib, possible early dementia/sundowners/occasionally pt is confused or hallucinates, recent UTI treated with antibiotic, rectal bleeds, rectal/anal cancer November 2019 with surgery/colostomy and colostomy reversal April 2020-pt has had some stool incontinence since reversal, bilateral cataracts, arthritis mostly in back/hips, DDD. History of Any Multi-Drug Resistant Organisms: None Reported Past Surgical History: Back Surgery, Cardiac Valve Replacement, Heart Catheterization, Hernia Repair, Joint Replacement, Orthopedic Surgery Additional Past Surgical History / Comment(s): 11/2019 colonoscopy/rectal/anal surgery d/t cancer with colostomy, 04/2020 reversal of colostomy, aortic valve replaced/prosthetic, R total hip with later revision, bilateral carpal tunnel releases, bilateral heel spurs removed, cervical surgery for pinched nerve, bilateral inguinal hernia repairs Past Anesthesia/Blood Transfusion Reactions: Postoperative Nausea & Vomiting (PONV) Additional Past Anesthesia/Blood Transfusion Reaction / Comment(s): Pt has received blood in past without reaction. Smoking Status: Former smoker - Past Family History Father Family Medical History: Diabetes Mellitus Mother Family Medical History: Congestive Heart Failure (CHF) Brother(s) Family Medical History: Cancer Medications and Allergies Home Medications Medication Instructions Recorded Confirmed Type RX: Ipratropium/Albuterol Sulfate 2 puff INHALATION RT-BID PRN 07/03/14 06/11/20 History [Combivent Respimat Inhaler] Apixaban [Eliquis] 5 mg PO BID 30 Days #60 tab 02/10/17 06/11/20 Rx RX: traMADol HCl [Ultram] 50 mg PO Q6H PRN #90 tab 02/10/17 06/11/20 Rx RX: Simvastatin 40 mg PO HS 06/11/20 06/11/20 History Allergies Allergy/AdvReac Type Severity Reaction Status Date / Time dobutamine Allergy Rapid Verified 02/02/17 10:35 Heart Rate hydrocodone bitartrate Allergy "felt like Verified 02/02/17 10:35 [From Vicodin] skin crawling" Physical Exam Vitals: Vital Signs Temp Pulse Resp BP Pulse Ox 06/11/20 12:30 110 H 19 116/70 95 06/11/20 12:15 113 H 9 L 92/67 96 06/11/20 12:00 99.4 F 126 H 8 L 105/84 96 06/11/20 11:45 131 H 15 108/74 96 06/11/20 11:30 138 H 18 106/66 95 06/11/20 11:25 95 06/11/20 11:15 114 H 10 L 109/76 96 06/11/20 11:00 102 H 16 113/73 97 06/11/20 10:45 120 H 15 99/70 93 L 06/11/20 10:30 118 H 16 105/68 94 L 06/11/20 10:15 106 H 16 160/95 95 06/11/20 10:00 98 17 100/73 93 L 06/11/20 09:45 123 H 13 101/69 94 L 06/11/20 09:30 135 H 15 102/72 93 L 06/11/20 09:15 126 H 48 H 101/73 98 06/11/20 09:00 116 H 20 93/53 98 06/11/20 08:45 116 H 17 107/69 98 06/11/20 08:30 99.6 F 114 H 7 L 107/68 98 06/11/20 06:23 120 H 16 96/53 96 06/11/20 05:15 98 16 60/48 94 L 06/11/20 04:57 104 H 16 75/45 94 L 06/11/20 04:18 98.2 F 100 18 80/60 94 L Intake and Output 06/10/20 06/11/20 06/11/20 22:59 06:59 14:59 Intake Total 0.829 628.933 Output Total 126 Balance 0.829 502.933 Intake: IV 620 Magnesium Sulfate-D5w Pmx 100 1 gm In Dextrose/Water 1 100ml.bag @ 100 mls/hr IVPB Q1H DARÍO Rx#: [id number] Sodium Chloride 0.9% 1, 520 000 ml @ 130 mls/hr IV . Q7H42M STA Rx#:[id number] Intake, IV Titration 0.829 8.933 Amount Norepinephrine 32 mg In 0.829 8.933 Sodium Chloride 0.9% 218 ml @ 0.05 MCG/KG/MIN 1. 382 mls/hr IV .Q24H DARÍO Rx#:[id number] Output: Urine 126 Other: Weight 58.967 kg 58.967 kg GENERAL: The patient is alert and oriented x3, not in any acute distress. Well developed, well nourished. HEENT: Pupils are round and equally reacting to light. EOMI. No scleral icterus. No conjunctival pallor. Normocephalic, atraumatic. No pharyngeal erythema. No thyromegaly. CARDIOVASCULAR: S1 and S2 present. No murmurs, rubs, or gallops. PULMONARY: Chest is clear to auscultation, no wheezing or crackles. ABDOMEN: Soft, nontender, nondistended, normoactive bowel sounds. No palpable organomegaly. MUSCULOSKELETAL: No joint swelling or deformity. EXTREMITIES: No cyanosis, clubbing, or pedal edema. NEUROLOGICAL: Gross neurological examination did not reveal any focal deficits. SKIN: No rashes. No petechiae Results CBC & Chem 7: 06/12/20 04:29 06/12/20 04:29 Labs: Abnormal Lab Results - Last 24 Hours (Table) 06/11/20 06/11/20 06/11/20 Range/Units 04:56 04:56 04:56 RBC 2.80 L (4.30-5.90) m/uL Hgb 9.3 L (13.0-17.5) gm/dL Hct 28.0 L (39.0-53.0) % Plt Count 144 L (150-450) k/uL Monocytes # (Manual) 1.65 H (0-1.0) k/uL PT 12.4 H (9.0-12.0) sec INR 1.2 H (<1.2) Chloride 112 H (98-107) mmol/L Carbon Dioxide 17 L (22-30) mmol/L BUN 37 H (9-20) mg/dL Creatinine 1.92 H (0.66-1.25) mg/dL Glucose 110 H (74-99) mg/dL POC Glucose (mg/dL) (75-99) mg/dL Plasma Lactic Acid Angel (0.7-2.0) mmol/L Calcium 7.6 L (8.4-10.2) mg/dL Magnesium 1.5 L (1.6-2.3) mg/dL Total Bilirubin 2.4 H (0.2-1.3) mg/dL Troponin I (0.000-0.034) ng/mL Total Protein 6.0 L (6.3-8.2) g/dL Albumin 3.1 L (3.5-5.0) g/dL Urine Protein (Negative) Urine Blood (Negative) Urine Bilirubin (Negative) Ur Leukocyte Esterase (Negative) Urine RBC (0-5) /hpf Urine WBC (0-5) /hpf Urine Bacteria (None) /hpf Hyaline Casts (0-2) /lpf Urine Mucus (None) /hpf 06/11/20 06/11/20 06/11/20 Range/Units 04:56 04:56 05:14 RBC (4.30-5.90) m/uL Hgb (13.0-17.5) gm/dL Hct (39.0-53.0) % Plt Count (150-450) k/uL Monocytes # (Manual) (0-1.0) k/uL PT (9.0-12.0) sec INR (<1.2) Chloride (98-107) mmol/L Carbon Dioxide (22-30) mmol/L BUN (9-20) mg/dL Creatinine (0.66-1.25) mg/dL Glucose (74-99) mg/dL POC Glucose (mg/dL) (75-99) mg/dL Plasma Lactic Acid Angel 2.8 H* (0.7-2.0) mmol/L Calcium (8.4-10.2) mg/dL Magnesium (1.6-2.3) mg/dL Total Bilirubin (0.2-1.3) mg/dL Troponin I 0.047 H* (0.000-0.034) ng/mL Total Protein (6.3-8.2) g/dL Albumin (3.5-5.0) g/dL Urine Protein 2+ H (Negative) Urine Blood Large H (Negative) Urine Bilirubin 1+ H (Negative) Ur Leukocyte Esterase Trace H (Negative) Urine RBC 78 H (0-5) /hpf Urine WBC 16 H (0-5) /hpf Urine Bacteria Rare H (None) /hpf Hyaline Casts 10 H (0-2) /lpf Urine Mucus Rare H (None) /hpf 06/11/20 06/11/20 06/11/20 Range/Units 08:30 09:11 09:57 RBC (4.30-5.90) m/uL Hgb (13.0-17.5) gm/dL Hct (39.0-53.0) % Plt Count (150-450) k/uL Monocytes # (Manual) (0-1.0) k/uL PT (9.0-12.0) sec INR (<1.2) Chloride (98-107) mmol/L Carbon Dioxide (22-30) mmol/L BUN (9-20) mg/dL Creatinine (0.66-1.25) mg/dL Glucose (74-99) mg/dL POC Glucose (mg/dL) 135 H (75-99) mg/dL Plasma Lactic Acid Angel 2.4 H* (0.7-2.0) mmol/L Calcium (8.4-10.2) mg/dL Magnesium (1.6-2.3) mg/dL Total Bilirubin (0.2-1.3) mg/dL Troponin I 0.060 H* (0.000-0.034) ng/mL Total Protein (6.3-8.2) g/dL Albumin (3.5-5.0) g/dL Urine Protein (Negative) Urine Blood (Negative) Urine Bilirubin (Negative) Ur Leukocyte Esterase (Negative) Urine RBC (0-5) /hpf Urine WBC (0-5) /hpf Urine Bacteria (None) /hpf Hyaline Casts (0-2) /lpf Urine Mucus (None) /hpf 06/11/20 06/11/20 06/11/20 Range/Units 12:06 12:28 12:28 RBC (4.30-5.90) m/uL Hgb (13.0-17.5) gm/dL Hct (39.0-53.0) % Plt Count (150-450) k/uL Monocytes # (Manual) (0-1.0) k/uL PT (9.0-12.0) sec INR (<1.2) Chloride (98-107) mmol/L Carbon Dioxide (22-30) mmol/L BUN (9-20) mg/dL Creatinine (0.66-1.25) mg/dL Glucose (74-99) mg/dL POC Glucose (mg/dL) 115 H (75-99) mg/dL Plasma Lactic Acid Angel 2.6 H* (0.7-2.0) mmol/L Calcium (8.4-10.2) mg/dL Magnesium (1.6-2.3) mg/dL Total Bilirubin (0.2-1.3) mg/dL Troponin I 0.080 H* (0.000-0.034) ng/mL Total Protein (6.3-8.2) g/dL Albumin (3.5-5.0) g/dL Urine Protein (Negative) Urine Blood (Negative) Urine Bilirubin (Negative) Ur Leukocyte Esterase (Negative) Urine RBC (0-5) /hpf Urine WBC (0-5) /hpf Urine Bacteria (None) /hpf Hyaline Casts (0-2) /lpf Urine Mucus (None) /hpf Microbiology - Last 24 Hours (Table) 06/11/20 05:14 Urine Culture - Preliminary Urine,Voided Thrombosis Risk Factor Assmnt - Choose All That Apply Any of the Below Risk Factors Present?: Yes Each Factor Represents 1 point: Abnormal pulmonary function (COPD), Medical pt on bed rest Other Risk Factors: Yes Each Risk Factor Represents 2 Points: Patient confined to bed, Malignancy Each Risk Factor Represents 3 Points: Age 75 years or older Other congenital or acquired thrombophilia - If yes, enter type in comment: No Thrombosis Risk Factor Assessment Total Risk Factor Score: 9 Thrombosis Risk Factor Assessment Level: High Risk Assessment and Plan Assessment: Acute and chronic atrial fibrillation with RVR , with elevated troponin acute kidney injury, mostly secondary to prerenal mild hematuria,and possible UTI follow-up urine culture Elevated lactic acid Hyperlipidemia Osteoarthritis History of COPD, no acute exacerbation History of GI bleed History of recurrent UTI [facility] status post reversal of colostomy on 04/2020 Plan: this is a pleasant 79 years old male who presents with .cardiac arrest status post brief CPR, A. fib and RVR, Labs and medication were reviewed.. Continue same treatment. Continue with symptomatic treatment. Resume home medication. Monitor lytes and vitals. DVT and GI prophylaxis. Further recommendations depends on the clinical course of the patient DVT prophylaxisEliquisGI Prophylaxis: Ppi Prognosis is guarded
--- NOTE | 2020-06-12 11:11 | P.PN ---
Subjective Progress Note Date: 06/12/20 Principal diagnosis: Cardiac arrest This is a 79-year-old gentleman who follows with Dr. Riddle as his primary care provider. He has a history of rectal cancer, COPD, atrial fibrillation with AVR, posttraumatic stress disorder, hyperlipidemia, DJD, dementia him a aortic valve replacement. The patient was taken to [facility] after developing increasing shortness of breath and altered mental status. He sustained a brief cardiopulmonary arrest requiring CPR. He was subsequently transferred here to the emergency room. He is seen this morning in the ER in consultation. He is arousable but not speaking clearly. Maintaining O2 saturations in the 90s on 3 L/m per nasal cannula. He is currently on norepinephrine at 5 mcg/m. 0.9 normal saline at 130 ML's per hour. He is found to be in atrial fibrillation with a rapid ventricular response. Amiodarone drip was initiated at 1 mg/m. He is anticoagulated with Eliquis. Chest x-ray reveals evidence of mild edema/c ongestion and a small right effusion. White count 5.5. Hemoglobin 9.3. Platelet count 144. Sodium 138. Potassium 4.9. Creatinine 1.92. Lactic acid 2.4. Troponin 0.06. ProBNP 5310. Hoffman virus not detected. Urine culture pending. The patient is seen today 06/12/2020 in follow-up in the intensive care unit. He is a bit more awake and alert today. Still disoriented to time and place. Speech is garbled. He is currently maintaining O2 saturations in the 90s on 15 L high flow nasal cannula. He is still on norepinephrine at 3 mcg/m. 0.9 normal saline at 50 MLS per hour. Amiodarone drip at 0.5 mg/m. He remains in atrial fibrillation. Chest x-ray reveals cardiomegaly with small bilateral effusions and associated atelectasis. Echocardiogram reveals moderate to severely impaired left ventricular systolic function with ejection fraction 30- 35%. Urine culture pending. White count 11.4. Hemoglobin 9.7. Sodium 140. Potassium 5.2. Creatinine 1.72. Lactic acid 2.5. He remains on ceftriaxone. Anticoagulation per cardiology. Objective - Vital Signs Vital signs: Vital Signs Temp 99.5 F 06/12/20 08:00 Pulse 100 06/12/20 09:30 Resp 23 06/12/20 09:30 BP 114/61 06/12/20 09:30 Pulse Ox 94 L 06/12/20 09:30 Intake & Output 06/11/20 06/12/20 06/12/20 18:59 06:59 18:59 Intake Total 6535.526 8559.032 175.930 Output Total 260 640 62 Balance 1015.765 745.032 113.930 Weight 58.967 kg 69.3 kg Intake: IV 1240 1350 160 Magnesium Sulfate-D5w Pmx 100 1 gm In Dextrose/Water 1 100ml.bag @ 100 mls/hr IVPB Q1H DARÍO Rx#: [id number] Sodium Chloride 0.9% 1, 10 000 ml @ 10 mls/hr IV . Q24H DARÍO Rx#:[id number] Sodium Chloride 0.9% 1, 1200 100 000 ml @ 100 mls/hr IV . Q10H DAR[facility]O Rx#:[id number] Sodium Chloride 0.9% 1, 1140 100 000 ml @ 130 mls/hr IV . Q7H42M STA Rx#:[id number] cefTRIAXone 1 gm In 50 50 Sodium Chloride 0.9% 50 ml @ 100 mls/hr IVPB Q12HR DARÍO Rx#:[id number] Intake, IV Titration 35.765 35.032 15.930 Amount Norepinephrine 32 mg In 35.765 35.032 15.930 Sodium Chloride 0.9% 218 ml @ 0.05 MCG/KG/MIN 1. 382 mls/hr IV .Q24H DARÍO Rx#:[id number] Output: Urine 260 640 62 Other: Voiding Method Indwelling Catheter Indwelling Catheter # Bowel Movements 1 - Exam GENERAL EXAM: Alert, frail, cachectic 79-year-old gentleman, on 15 L high flow nasal cannula comfortable in no apparent distress. HEAD: Normocephalic. EYES: Normal reaction of pupils, equal size. NOSE: Clear with pink turbinates. THROAT: No erythema or exudates. NECK: No masses, no JVD. CHEST: No chest wall deformity. LUNGS: Equal air entry with crackles in the bilateral posterior bases. CVS: S1 and S2 normal with no audible murmur, regular rhythm. ABDOMEN: No hepatosplenomegaly, normal bowel sounds, no guarding or rigidity. SPINE: No scoliosis or deformity SKIN: No rashes CENTRAL NERVOUS SYSTEM: Oriented times one. No focal deficits, tone is normal in all 4 extremities. EXTREMITIES: There is no peripheral edema. No clubbing, no cyanosis. Peripheral pulses are intact. - Labs CBC & Chem 7: 06/12/20 04:29 06/12/20 04:29 Labs: Abnormal Lab Results - Last 24 Hours (Table) 06/11/20 06/11/20 06/11/20 Range/Units 12:06 12:28 12:28 WBC (3.8-10.6) k/uL RBC (4.30-5.90) m/uL Hgb (13.0-17.5) gm/dL Hct (39.0-53.0) % MCV (80.0-100.0) fL MCHC (31.0-37.0) g/dL Neutrophils # (1.3-7.7) k/uL Lymphocytes # (1.0-4.8) k/uL Potassium (3.5-5.1) mmol/L Chloride (98-107) mmol/L Carbon Dioxide (22-30) mmol/L BUN (9-20) mg/dL Creatinine (0.66-1.25) mg/dL Glucose (74-99) mg/dL POC Glucose (mg/dL) 115 H (75-99) mg/dL Plasma Lactic Acid Angel 2.6 H* (0.7-2.0) mmol/L Calcium (8.4-10.2) mg/dL Troponin I 0.080 H* (0.000-0.034) ng/mL HDL Cholesterol (40-60) mg/dL 06/11/20 06/11/20 06/11/20 Range/Units 15:47 17:19 18:39 WBC (3.8-10.6) k/uL RBC (4.30-5.90) m/uL Hgb (13.0-17.5) gm/dL Hct (39.0-53.0) % MCV (80.0-100.0) fL MCHC (31.0-37.0) g/dL Neutrophils # (1.3-7.7) k/uL Lymphocytes # (1.0-4.8) k/uL Potassium (3.5-5.1) mmol/L Chloride (98-107) mmol/L Carbon Dioxide (22-30) mmol/L BUN (9-20) mg/dL Creatinine (0.66-1.25) mg/dL Glucose (74-99) mg/dL POC Glucose (mg/dL) 101 H (75-99) mg/dL Plasma Lactic Acid Angel 3.2 H* 3.2 H* (0.7-2.0) mmol/L Calcium (8.4-10.2) mg/dL Troponin I (0.000-0.034) ng/mL HDL Cholesterol (40-60) mg/dL 06/11/20 06/12/20 06/12/20 Range/Units 21:53 01:01 01:04 WBC (3.8-10.6) k/uL RBC (4.30-5.90) m/uL Hgb (13.0-17.5) gm/dL Hct (39.0-53.0) % MCV (80.0-100.0) fL MCHC (31.0-37.0) g/dL Neutrophils # (1.3-7.7) k/uL Lymphocytes # (1.0-4.8) k/uL Potassium (3.5-5.1) mmol/L Chloride (98-107) mmol/L Carbon Dioxide (22-30) mmol/L BUN (9-20) mg/dL Creatinine (0.66-1.25) mg/dL Glucose (74-99) mg/dL POC Glucose (mg/dL) 100 H (75-99) mg/dL Plasma Lactic Acid Angel 3.7 H* 2.9 H* (0.7-2.0) mmol/L Calcium (8.4-10.2) mg/dL Troponin I (0.000-0.034) ng/mL HDL Cholesterol (40-60) mg/dL 06/12/20 06/12/20 06/12/20 Range/Units 04:29 04:29 04:29 WBC 11.4 H (3.8-10.6) k/uL RBC 3.10 L (4.30-5.90) m/uL Hgb 9.7 L (13.0-17.5) gm/dL Hct 31.9 L (39.0-53.0) % MCV 102.7 H (80.0-100.0) fL MCHC 30.3 L (31.0-37.0) g/dL Neutrophils # 9.4 H (1.3-7.7) k/uL Lymphocytes # 0.9 L (1.0-4.8) k/uL Potassium 5.2 H (3.5-5.1) mmol/L Chloride 115 H (98-107) mmol/L Carbon Dioxide 14 L (22-30) mmol/L BUN 39 H (9-20) mg/dL Creatinine 1.72 H (0.66-1.25) mg/dL Glucose 108 H (74-99) mg/dL POC Glucose (mg/dL) (75-99) mg/dL Plasma Lactic Acid Angel 2.5 H* (0.7-2.0) mmol/L Calcium 7.6 L (8.4-10.2) mg/dL Troponin I (0.000-0.034) ng/mL HDL Cholesterol 30 L (40-60) mg/dL 06/12/20 Range/Units 05:40 WBC (3.8-10.6) k/uL RBC (4.30-5.90) m/uL Hgb (13.0-17.5) gm/dL Hct (39.0-53.0) % MCV (80.0-100.0) fL MCHC (31.0-37.0) g/dL Neutrophils # (1.3-7.7) k/uL Lymphocytes # (1.0-4.8) k/uL Potassium (3.5-5.1) mmol/L Chloride (98-107) mmol/L Carbon Dioxide (22-30) mmol/L BUN (9-20) mg/dL Creatinine (0.66-1.25) mg/dL Glucose (74-99) mg/dL POC Glucose (mg/dL) 109 H (75-99) mg/dL Plasma Lactic Acid Angel (0.7-2.0) mmol/L Calcium (8.4-10.2) mg/dL Troponin I (0.000-0.034) ng/mL HDL Cholesterol (40-60) mg/dL Microbiology - Last 24 Hours (Table) 06/11/20 05:14 Urine Culture - Preliminary Urine,Voided Assessment and Plan Assessment: 1 Acute cardiopulmonary arrest requiring brief CPR and an outside facility, not intubated 2 Atrial fibrillation with rapid ventricular response, rate control and anticoagulation per cardiology 3 Acute exacerbation of systolic congestive heart failure with ejection fraction 30-35% 4 acute hypoxic respiratory failure secondary to above 5 Dementia 6 History of rectal cancer 7 History of chronic obstructive pulmonary disease 8 History of previous chronic tobacco dependence 9 Post traumatic stress disorder 11 Hyperlipidemia 12 Degenerative joint disease 13 History of prosthetic aortic valve replacement Plan: The patient was seen and evaluated by Dr. Aguilar Chest x-ray, labs reviewed Titrate norepinephrine for pressure support Continue bronchodilators Titrate down the FiO2 as tolerated Follow-up chest x-ray in the a.m. We will continue to follow and make further recommendations based on his clinical status I, the cosigning physician, performed a history & physical examination of the patient. Lungs sounds with crackles in the bilateral posterior bases. Maintaining good O2 saturations in the 90s on 15 L/m per nasal cannula. I discussed the assessment and plan of care with my nurse practitioner, Amanda Ames. I attest to the above note as dictated by her.
[2020-06-12 11:53] LABS: Glucose,Whole Blood 107 mg/dL (75-99)
[2020-06-12] MEDS: SODIUM CHLORIDE 0.9% 1,000 ML IV SCH (12:27)
[2020-06-12 15:26] LABS: Hemoglobin A1C 5.4 % (4.0-6.0)
--- NOTE | 2020-06-12 17:19 | P.PN ---
Subjective Progress Note Date: 06/12/20 Principal diagnosis: Acute cardiopulmonary arrest requiring brief CPR Atrial fibrillation with rapid ventricular response Acute hypoxic respiratory failure 79-year-old gentleman who follows with Dr. Riddle as his primary care provider. He has a history of rectal cancer, COPD, atrial fibrillation with AVR, posttraumatic stress disorder, hyperlipidemia, DJD, dementia him a aortic valve replacement. The patient was taken to [facility] after developing increasing shortness of breath and altered mental status. He sustained a brief cardiopulmonary arrest requiring CPR. He was subsequently transferred here to the emergency room. He is seen this morning in the ER in consultation. He is arousable but not speaking clearly. Maintaining O2 saturations in the 90s on 3 L/m per nasal cannula. He is currently on norepinephrine at 5 mcg/m. 0.9 normal saline at 130 ML's per hour. He is found to be in atrial fibrillation with a rapid ventricular response. Amiodarone drip was initiated at 1 mg/m. He is anticoagulated with Eliquis. Chest x-ray reveals evidence of mild edema/congestion and a small right effusion. White count 5.5. Hemoglobin 9.3. Platelet count 144. Sodium 138. Potassium 4.9. Creatinine 1.92. Lactic acid 2.4. Troponin 0.06. ProBNP 5310. Hoffman virus not detected. Urine culture pending. 06/12/2020 Patient is seen and evaluated in follow-up in the intensive care unit. He is a bit more awake and alert but remained disoriented to time and place. Speech is garbled. He is currently maintaining O2 saturations in the 90s on 15 L high flow nasal cannula. He is still on norepinephrine at 3 mcg/m. 0.9 normal s vargas at 50 MLS per hour. Amiodarone drip at 0.5 mg/m. He remains in atrial fibrillation. Chest x-ray reveals cardiomegaly with small bilateral effusions and associated atelectasis. Echocardiogram reveals moderate to severely impaired left ventricular systolic function with ejection fraction 30-35%. Urine culture pending. White count 11.4. Hemoglobin 9.7. Sodium 140. Potassium 5.2. Creatinine 1.72. Lactic acid 2.5. He remains on ceftriaxone. Anticoagulation per cardiology. Objective - Vital Signs Vital signs: Vital Signs Temp 99.5 F 06/12/20 08:00 Pulse 100 06/12/20 09:30 Resp 23 06/12/20 09:30 BP 114/61 06/12/20 09:30 Pulse Ox 94 L 06/12/20 09:30 Intake & Output 06/11/20 06/12/20 06/12/20 18:59 06:59 18:59 Intake Total 8148.247 2181.032 175.930 Output Total 260 640 62 Balance 1015.765 745.032 113.930 Weight 58.967 kg 69.3 kg Intake: IV 1240 1350 160 Magnesium Sulfate-D5w Pmx 100 1 gm In Dextrose/Water 1 100ml.bag @ 100 mls/hr IVPB Q1H D[facility]O Rx#: [id number] Sodium Chloride 0.9% 1, 10 000 ml @ 10 mls/hr IV . Q24H [facility]O Rx#:[id number] Sodium Chloride 0.9% 1, 1200 100 000 ml @ 100 mls/hr IV . Q10H DAR[facility]O Rx#:[id number] Sodium Chloride 0.9% 1, 1140 100 000 ml @ 130 mls/hr IV . Q7H42M STA Rx#:[id number] cefTRIAXone 1 gm In 50 50 Sodium Chloride 0.9% 50 ml @ 100 mls/hr IVPB Q12HR D[facility]O Rx#:[id number] Intake, IV Titration 35.765 35.032 15.930 Amount Norepinephrine 32 mg In 35.765 35.032 15.930 Sodium Chloride 0.9% 218 ml @ 0.05 MCG/KG/MIN 1. 382 mls/hr IV .Q24H DARÍO Rx#:[id number] Output: Urine 260 640 62 Other: Voiding Method Indwelling Catheter Indwelling Catheter # Bowel Movements 1 - Exam GENERAL: The patient is alert and oriented x3, not in any acute distress. Well developed, well nourished. HEENT: Pupils are round and equally reacting to light. EOMI. No scleral icterus. No conjunctival pallor. Normocephalic, atraumatic. No pharyngeal erythema. No thyromegaly. CARDIOVASCULAR: S1 and S2 present. No murmurs, rubs, or gallops. PULMONARY: Chest is clear to auscultation, no wheezing or crackles. ABDOMEN: Soft, nontender, nondistended, normoactive bowel sounds. No palpable organomegaly. MUSCULOSKELETAL: No joint swelling or deformity. EXTREMITIES: No cyanosis, clubbing, or pedal edema. NEUROLOGICAL: Gross neurological examination did not reveal any focal deficits. SKIN: No rashes. No petechiae - Labs CBC & Chem 7: 06/12/20 04:29 06/12/20 04:29 Labs: Abnormal Lab Results - Last 24 Hours (Table) 06/11/20 06/11/20 06/11/20 Range/Units 12:06 12:28 12:28 WBC (3.8-10.6) k/uL RBC (4.30-5.90) m/uL Hgb (13.0-17.5) gm/dL Hct (39.0-53.0) % MCV (80.0-100.0) fL MCHC (31.0-37.0) g/dL Neutrophils # (1.3-7.7) k/uL Lymphocytes # (1.0-4.8) k/uL Potassium (3.5-5.1) mmol/L Chloride (98-107) mmol/L Carbon Dioxide (22-30) mmol/L BUN (9-20) mg/dL Creatinine (0.66-1.25) mg/dL Glucose (74-99) mg/dL POC Glucose (mg/dL) 115 H (75-99) mg/dL Plasma Lactic Acid Angel 2.6 H* (0.7-2.0) mmol/L Calcium (8.4-10.2) mg/dL Troponin I 0.080 H* (0.000-0.034) ng/mL HDL Cholesterol (40-60) mg/dL 06/11/20 06/11/20 06/11/20 Range/Units 15:47 17:19 18:39 WBC (3.8-10.6) k/uL RBC (4.30-5.90) m/uL Hgb (13.0-17.5) gm/dL Hct (39.0-53.0) % MCV (80.0-100.0) fL MCHC (31.0-37.0) g/dL Neutrophils # (1.3-7.7) k/uL Lymphocytes # (1.0-4.8) k/uL Potassium (3.5-5.1) mmol/L Chloride (98-107) mmol/L Carbon Dioxide (22-30) mmol/L BUN (9-20) mg/dL Creatinine (0.66-1.25) mg/dL Glucose (74-99) mg/dL POC Glucose (mg/dL) 101 H (75-99) mg/dL Plasma Lactic Acid Angel 3.2 H* 3.2 H* (0.7-2.0) mmol/L Calcium (8.4-10.2) mg/dL Troponin I (0.000-0.034) ng/mL HDL Cholesterol (40-60) mg/dL 06/11/20 06/12/20 06/12/20 Range/Units 21:53 01:01 01:04 WBC (3.8-10.6) k/uL RBC (4.30-5.90) m/uL Hgb (13.0-17.5) gm/dL Hct (39.0-53.0) % MCV (80.0-100.0) fL MCHC (31.0-37.0) g/dL Neutrophils # (1.3-7.7) k/uL Lymphocytes # (1.0-4.8) k/uL Potassium (3.5-5.1) mmol/L Chloride (98-107) mmol/L Carbon Dioxide (22-30) mmol/L BUN (9-20) mg/dL Creatinine (0.66-1.25) mg/dL Glucose (74-99) mg/dL POC Glucose (mg/dL) 100 H (75-99) mg/dL Plasma Lactic Acid Angel 3.7 H* 2.9 H* (0.7-2.0) mmol/L Calcium (8.4-10.2) mg/dL Troponin I (0.000-0.034) ng/mL HDL Cholesterol (40-60) mg/dL 06/12/20 06/12/20 06/12/20 Range/Units 04:29 04:29 04:29 WBC 11.4 H (3.8-10.6) k/uL RBC 3.10 L (4.30-5.90) m/uL Hgb 9.7 L (13.0-17.5) gm/dL Hct 31.9 L (39.0-53.0) % MCV 102.7 H (80.0-100.0) fL MCHC 30.3 L (31.0-37.0) g/dL Neutrophils # 9.4 H (1.3-7.7) k/uL Lymphocytes # 0.9 L (1.0-4.8) k/uL Potassium 5.2 H (3.5-5.1) mmol/L Chloride 115 H (98-107) mmol/L Carbon Dioxide 14 L (22-30) mmol/L BUN 39 H (9-20) mg/dL Creatinine 1.72 H (0.66-1.25) mg/dL Glucose 108 H (74-99) mg/dL POC Glucose (mg/dL) (75-99) mg/dL Plasma Lactic Acid Angel 2.5 H* (0.7-2.0) mmol/L Calcium 7.6 L (8.4-10.2) mg/dL Troponin I (0.000-0.034) ng/mL HDL Cholesterol 30 L (40-60) mg/dL 06/12/20 Range/Units 05:40 WBC (3.8-10.6) k/uL RBC (4.30-5.90) m/uL Hgb (13.0-17.5) gm/dL Hct (39.0-53.0) % MCV (80.0-100.0) fL MCHC (31.0-37.0) g/dL Neutrophils # (1.3-7.7) k/uL Lymphocytes # (1.0-4.8) k/uL Potassium (3.5-5.1) mmol/L Chloride (98-107) mmol/L Carbon Dioxide (22-30) mmol/L BUN (9-20) mg/dL Creatinine (0.66-1.25) mg/dL Glucose (74-99) mg/dL POC Glucose (mg/dL) 109 H (75-99) mg/dL Plasma Lactic Acid Angel (0.7-2.0) mmol/L Calcium (8.4-10.2) mg/dL Troponin I (0.000-0.034) ng/mL HDL Cholesterol (40-60) mg/dL Microbiology - Last 24 Hours (Table) 06/11/20 05:14 Urine Culture - Preliminary Urine,Voided Assessment and Plan Assessment: Acute and chronic atrial fibrillation with RVR , with elevated troponin acute kidney injury, mostly secondary to prerenal mild hematuria,and possible UTI follow-up urine culture Elevated lactic acid Hyperlipidemia Osteoarthritis History of COPD, no acute exacerbation History of GI bleed History of recurrent UTI History of rectal bleeding with rectal cancer [facility] 11/2019 status post reversal of colostomy on 04/2020 Plan: this is a pleasant 79 years old male who presents with .cardiac arrest status post brief CPR, A. fib and RVR, Labs and medication were reviewed.. Continue same treatment. Continue with symptomatic treatment. Resume home medication. Monitor lytes and vitals. DVT and GI prophylaxis. Further recommendations depends on the clinical course of the patient DVT prophylaxisEliquisGI Prophylaxis: Ppi Prognosis is guarded
[2020-06-12 18:06] LABS: Glucose,Whole Blood 102 mg/dL (75-99)
[2020-06-12] MEDS: ATORVASTATIN 20 MG TAB PO SCH (22:02)
[2020-06-13 00:28] LABS: Glucose,Whole Blood 114 mg/dL (75-99)
[2020-06-13] MEDS: INSULIN ASPART (NovoLOG) 100 UNIT/ML VIAL SQ SCH ×4 (02:39→18:55)
[2020-06-13] MEDS ORDERED: AMIODARONE 360 MG in DEXTROSE 5% IN WATER 200 ML IV ONE ×4 (03:00→18:30)
[2020-06-13] MEDS: IPRATROPIUM-ALBUTEROL 3 ML NEB INHALATION PRN ×3 (03:02→17:04)
[2020-06-13] MEDS: NOREPINEPHRINE 32 MG in SODIUM CHLORIDE 0.9% 218 ML IV SCH ×2 (05:23→14:43)
[2020-06-13 05:28] LABS: Basophils % (A) 0 %; Eosinophils % (A) 0 %; HCT 30.3 % (39.0-53.0); HGB 9.4 gm/dL (13.0-17.5); Hypochromasia Marked; Lymphocytes % (A) 8 %; MCH 31.4 pg (25.0-35.0); MCHC 31.1 g/dL (31.0-37.0); MCV 100.9 fL (80.0-100.0); Macrocytosis Slight; Mean Platelet Volume 9.2; Monocytes # (A) 0.7 k/uL (0-1.0); Monocytes % (A) 6 %; Neutrophils # (A) 10.9 k/uL (1.3-7.7); Neutrophils % (A) 86 %; Platelet Count 133 k/uL (150-450); RDW 14.7 % (11.5-15.5); WBC 12.8 k/uL (3.8-10.6)
[2020-06-13 06:33] LABS: Calcium 7.8 mg/dL (8.4-10.2); Potassium 4.6 mmol/L (3.5-5.1)
[2020-06-13 06:49] LABS: Glucose,Whole Blood 122 mg/dL (75-99)
[2020-06-13] MEDS: METOPROLOL TARTRATE 12.5 MG TAB PO SCH ×2 (08:29→15:01)
[2020-06-13] MEDS: SODIUM CHLORIDE 0.9% 1,000 ML IV SCH (08:30)
[2020-06-13] MEDS: PANTOPRAZOLE 40 MG/10 ML VIAL IVP SCH (08:30)
[2020-06-13] MEDS ORDERED: APIXABAN 5 MG TAB PO SCH (09:00)
[2020-06-13] MEDS ORDERED: AMIODARONE 200 MG TAB PO SCH (09:00)
[2020-06-13] MEDS ORDERED: ASPIRIN 81 MG PO SCH (09:00)
[2020-06-13] MEDS ORDERED: QUEtiapine 25 MG TAB PO SCH (10:15)
--- NOTE | 2020-06-13 10:15 | PN ---
PROGRESS NOTE Mr. Cabezas is much more alert this morning. He is actually answering questions and seems to be more hemodynamically stable. He is on a very small dose of Levophed. He actually seems to have improved a lot and is swallowing also better. He has no chest discomfort or shortness of breath, appears to be much more comfortable. He is in atrial fib. The rate is fairly well controlled. His swallowing seems to be better today. The septic workup did not yield any source of infection. No growth either in the blood or urine so far. Since he can take oral medications I am suggesting that we will switch him from Lovenox to Eliquis 5 mg b.i.d. Renal function is acceptable. I will also switch him from IV to oral amiodarone and place him on a small dose of metoprolol tartrate 12.5 mg t.i.d. I eventually plan to stop amiodarone in the next day or so. His rate control prior to admission has been fairly decent. This gentleman has a mechanical aortic valve prosthesis and had a previous unremarkable stress test within the last one year. PHYSICAL EXAMINATION: Revealed blood pressure of about 113/70, pulse rate is about 82, irregular. Jugular venous distention 1 cm. No carotid bruit. S1, S2 with irregularity in rhythm noted. Ejection systolic murmur at the base noted. Lungs reveal bilateral improved air entry. Abdomen is soft. Lower extremities reveal diminished pulses. Central nervous system exam suggests that the patient has no motor deficits and answers questions appropriately. RECOMMENDATIONS: I am recommending that we switch him to oral amiodarone if he is able to tolerate, place him on a small dose of metoprolol tartrate and switch him from Lovenox to Eliquis 5 mg b.i.d. Septic workup has been negative so far. MMODL / IJN: [id number] /
--- NOTE | 2020-06-13 11:47 | XR ---
EXAMINATION TYPE: XR chest 1V portable DATE OF EXAM: 06/13/2020 COMPARISON: 06/12/2020 INDICATION: CHF TECHNIQUE: Single frontal view of the chest is obtained. FINDINGS: The heart size is a prominent. The pulmonary vasculature is normal. Minimal subsegmental infiltrates may be at the lung bases correlate for atelectasis. Very small pleur al effusions should be considered. This has slight improvement from comparison. Right central venous catheter is present with the tip in the expected region of the right atrium. Sternotomy wires are in the midline. IMPRESSION: 1. Small bilateral pleural effusions 2. Cardiomegaly
[2020-06-13 12:05] LABS: Glucose,Whole Blood 183 mg/dL (75-99)
--- NOTE | 2020-06-13 12:56 | P.PN ---
Subjective Progress Note Date: 06/13/20 Principal diagnosis: Cardiac arrest This is a 79-year-old gentleman who follows with Dr. Riddle as his primary care provider. He has a history of rectal cancer, COPD, atrial fibrillation with AVR, posttraumatic stress disorder, hyperlipidemia, DJD, dementia him a aortic valve replacement. The patient was taken to [facility] after developing increasing shortness of breath and altered mental status. He sustained a brief cardiopulmonary arrest requiring CPR. He was subsequently transferred here to the emergency room. He is seen this morning in the ER in consultation. He is arousable but not speaking clearly. Maintaining O2 saturations in the 90s on 3 L/m per nasal cannula. He is currently on norepinephrine at 5 mcg/m. 0.9 normal saline at 130 ML's per hour. He is found to be in atrial fibrillation with a rapid ventricular response. Amiodarone drip was initiated at 1 mg/m. He is anticoagulated with Eliquis. Chest x-ray reveals evidence of mild edema/c ongestion and a small right effusion. White count 5.5. Hemoglobin 9.3. Platelet count 144. Sodium 138. Potassium 4.9. Creatinine 1.92. Lactic acid 2.4. Troponin 0.06. ProBNP 5310. Hoffman virus not detected. Urine culture pending. The patient is seen today 06/12/2020 in follow-up in the intensive care unit. He is a bit more awake and alert today. Still disoriented to time and place. Speech is garbled. He is currently maintaining O2 saturations in the 90s on 15 L high flow nasal cannula. He is still on norepinephrine at 3 mcg/m. 0.9 normal saline at 50 MLS per hour. Amiodarone drip at 0.5 mg/m. He remains in atrial fibrillation. Chest x-ray reveals cardiomegaly with small bilateral effusions and associated atelectasis. Echocardiogram reveals moderate to severely impaired left ventricular systolic function with ejection fraction 30- 35%. Urine culture pending. White count 11.4. Hemoglobin 9.7. Sodium 140. Potassium 5.2. Creatinine 1.72. Lactic acid 2.5. He remains on ceftriaxone. Anticoagulation per cardiology. The patient is seen today 06/13/2020 in follow-up in the intensive care unit. He is awake and alert. Speech remains garbled at times. He is confused to time and place. Restless. Pulling at IVs and bedding. Pulling off nonrebreather mask and nasal cannulas. O2 saturations in the mid to upper 80s on room air. Chest x-ray reveals small bilateral effusions. Cardiomegaly. Blood and urine cultures reveal no growth. White count 12.8. Hemoglobin 9.4. Platelet count 133. Sodium 141. Potassium 4.6. Creatinine 1.51. He remains on ceftriaxone. Continue bronchodilators. Off pressors since early this morning. Transitioned from IV amiodarone to oral. Anticoagulated with Eliquis. Objective - Vital Signs Vital signs: Vital Signs Temp 98.2 F 06/13/20 08:00 Pulse 76 06/13/20 11:00 Resp 25 H 06/13/20 11:00 BP 97/61 06/13/20 11:00 Pulse Ox 87 L 06/13/20 11:00 Intake & Output 06/12/20 06/13/20 06/13/20 18:59 06:59 18:59 Intake Total 262.788 649.727 116.639 Output Total 308 550 140 Balance -45.212 99.727 -23.361 Weight 70 kg Intake: IV 230 410 90 Sodium Chloride 0.9% 1, 80 360 40 000 ml @ 10 mls/hr IV . Q24H DAR[facility]O Rx#:[id number] Sodium Chloride 0.9% 1, 100 000 ml @ 100 mls/hr IV . Q10H DAR[facility]O Rx#:[id number] cefTRIAXone 1 gm In 50 50 50 Sodium Chloride 0.9% 50 ml @ 100 mls/hr IVPB Q12HR [facility] Rx#:[id number] Intake, IV Titration 32.788 239.727 26.639 Amount Amiodarone 450 mg In 239.727 Dextrose 5% in Water 250 ml @ 0.5 MG/MIN 16.667 mls/hr IV .Q15H DAR[facility]O Rx#: [id number] Norepinephrine 32 mg In 32.788 26.639 Sodium Chloride 0.9% 218 ml @ 0.05 MCG/KG/MIN 1. 382 mls/hr IV .Q24H DARÍO Rx#:[id number] Output: Urine 308 550 140 Other: Voiding Method Indwelling Catheter Indwelling Catheter Indwelling Catheter - Exam GENERAL EXAM: Alert, frail, cachectic 79-year-old gentleman, on partial rebreather mask, comfortable in no apparent distress. HEAD: Normocephalic. EYES: Normal reaction of pupils, equal size. NOSE: Clear with pink turbinates. THROAT: No erythema or exudates. NECK: No masses, no JVD. CHEST: No chest wall deformity. LUNGS: Equal air entry with crackles in the bilateral posterior bases. CVS: S1 and S2 normal with no audible murmur, regular rhythm. ABDOMEN: No hepatosplenomegaly, normal bowel sounds, no guarding or rigidity. SPINE: No scoliosis or deformity SKIN: No rashes CENTRAL NERVOUS SYSTEM: Oriented times one. No focal deficits, tone is normal in all 4 extremities. EXTREMITIES: There is no peripheral edema. No clubbing, no cyanosis. Peripheral pulses are intact. - Labs CBC & Chem 7: 06/13/20 03:37 06/13/20 03:37 Labs: Abnormal Lab Results - Last 24 Hours (Table) 06/12/20 06/13/20 06/13/20 Range/Units 18:04 00:26 03:37 WBC 12.8 H (3.8-10.6) k/uL RBC 3.00 L (4.30-5.90) m/uL Hgb 9.4 L (13.0-17.5) gm/dL Hct 30.3 L (39.0-53.0) % MCV 100.9 H (80.0-100.0) fL Plt Count 133 L (150-450) k/uL Neutrophils # 10.9 H (1.3-7.7) k/uL Chloride (98-107) mmol/L Carbon Dioxide (22-30) mmol/L BUN (9-20) mg/dL Creatinine (0.66-1.25) mg/dL Glucose (74-99) mg/dL POC Glucose (mg/dL) 102 H 114 H (75-99) mg/dL Calcium (8.4-10.2) mg/dL 06/13/20 06/13/20 06/13/20 Range/Units 03:37 06:48 11:53 WBC (3.8-10.6) k/uL RBC (4.30-5.90) m/uL Hgb (13.0-17.5) gm/dL Hct (39.0-53.0) % MCV (80.0-100.0) fL Plt Count (150-450) k/uL Neutrophils # (1.3-7.7) k/uL Chloride 113 H (98-107) mmol/L Carbon Dioxide 15 L (22-30) mmol/L BUN 39 H (9-20) mg/dL Creatinine 1.51 H (0.66-1.25) mg/dL Glucose 102 H (74-99) mg/dL POC Glucose (mg/dL) 122 H 183 H (75-99) mg/dL Calcium 7.8 L (8.4-10.2) mg/dL Microbiology - Last 24 Hours (Table) 06/11/20 05:50 Blood Culture - Preliminary Blood No Growth after 24 hours 06/11/20 05:50 Blood Culture - Preliminary Blood No Growth after 24 hours 06/11/20 05:14 Urine Culture - Final Urine,Voided Assessment and Plan Assessment: 1 Acute cardiopulmonary arrest requiring brief CPR and an outside facility, not intubated 2 Atrial fibrillation with rapid ventricular response, rate control and anticoag ulation per cardiology 3 Acute exacerbation of systolic congestive heart failure with ejection fraction 30-35% 4 Acute hypoxic respiratory failure secondary to above 5 Dementia 6 History of rectal cancer 7 History of chronic obstructive pulmonary disease 8 History of previous chronic tobacco dependence 9 Post traumatic stress disorder 11 Hyperlipidemia 12 Degenerative joint disease 13 History of prosthetic aortic valve replacement Plan: The patient was seen and evaluated by Dr. Aguilar Chest x-ray, labs reviewed Continue bronchodilators Titrate down the FiO2 as tolerated Seroquel 25 mg twice a day for restlessness We will continue to follow I, the cosigning physician, performed a history & physical examination of the patient. Lungs sounds with crackles in the bilateral posterior bases. Maintaining good O2 saturations in the 90s on partial rebreather mask. I discussed the assessment and plan of care with my nurse practitioner, Amanda Ames. I attest to the above note as dictated by her.
[2020-06-13] MEDS ORDERED: propofoL 100 ML IV ONE (13:03)
[2020-06-13 13:13] LABS: Glucose,Whole Blood 180 mg/dL (75-99)
--- NOTE | 2020-06-13 13:26 | XR ---
EXAMINATION TYPE: XR chest 1V portable DATE OF EXAM: 06/13/2020 COMPARISON: 06/13/2020 INDICATION: Tube placement TECHNIQUE: Single frontal view of the chest is obtained. FINDINGS: The heart size is mild the prominent. The pulmonary vasculature is normal. Mild left lower lobe infiltrate is present. Minimal right lower lobe infiltrate may be present There is placement of an endotracheal tube with the tip near the narendra. This should be pulled back approximately 2.1 cm. Nasogastric tube transverses the thorax with tip in the proximal left upper kaila drant of the abdomen. This could be advanced slightly. Right central venous catheter position is stab le. IMPRESSION: 1. Small bilateral pleural effusions 2. Endotracheal tube tip is close to the narendra and should be pulled back 2 cm. 3. Nasogastric tube within the proximal left upper quadrant of the abdomen and can be advanced somewh at for better seating
--- NOTE | 2020-06-13 13:37 | P.EN ---
CODE BLUE Background: patient being repositioned after nursing aids had provided personal care and was noted to have agonal respirations, PEA on the monitor, CPR started immediatly. Arrived to find CPR in progess, 1 amp epi ordered and given, IV fluids wide oopen, repeat pulse check confirmed ROSC BP 104/25. Levophed started. Patient intubated by [employer] [employer] and placed on vent with 14/250/5/100. Patient was sbiting on tube and trying to lift his head. He was started on propofol . Pulse escalated to 122 and BP 87/[address] Aguilar notified by RN and aware Patient seen and examined at bedside. Vital signs reviewed General: sedated and breathing with the vent. Derm: warm, dry Head: atraumatic, normocephalic, symmetric Eyes: EOMI, no lid lag, anicteric sclera Mouth: no lip lesion, mucus membranes moist Cardiovascular: S1S2 reg, no murmur Lungs: BS course and equal bilateral, on vent Ext: cyanotic fingers bilateral with blubbing, + femoral pulse b/l Assessment/Plan: PEA arrest with ROSC achieved - Dr. Aguilar notified by RN - Awaiting call back from [facility] - family is on the way back to the hospital Systolic CHF with EF 30-35% A fib wtih RVR Acute hypoxic respiratory fialure lactic acidosis
[2020-06-13 13:48] LABS: ABG HCO3 13 mmol/L (21-25); ABG PCO2 33 mmHg (35-45); ABG PO2 78 mmHg (83-108); ABG TCO2 14 mmol/L (19-24); Allen Test Performed? Yes
[2020-06-13] MEDS ORDERED: AMIODARONE 450 MG in DEXTROSE 5% IN WATER 250 ML IV SCH ×2 (14:15)
[2020-06-13] MEDS ORDERED: SODIUM BICARB 8.4% 50 ML SYR (1 MEQ/ML) IV STA (14:17)
[2020-06-13 14:59] LABS: Glucose,Whole Blood 132 mg/dL (75-99)
--- NOTE | 2020-06-13 15:11 | P.PN ---
Subjective Progress Note Date: 06/13/20 Principal diagnosis: Acute cardiopulmonary arrest requiring brief CPR Atrial fibrillation with rapid ventricular response Acute hypoxic respiratory failure 79-year-old gentleman who follows with Dr. Riddle as his primary care provider. He has a history of rectal cancer, COPD, atrial fibrillation with AVR, posttraumatic stress disorder, hyperlipidemia, DJD, dementia him a aortic valve replacement. The patient was taken to [facility] after developing increasing shortness of breath and altered mental status. He sustained a brief cardiopulmonary arrest requiring CPR. He was subsequently transferred here to the emergency room. He is seen this morning in the ER in consultation. He is arousable but not speaking clearly. Maintaining O2 saturations in the 90s on 3 L/m per nasal cannula. He is currently on norepinephrine at 5 mcg/m. 0.9 normal saline at 130 ML's per hour. He is found to be in atrial fibrillation with a rapid ventricular response. Amiodarone drip was initiated at 1 mg/m. He is anticoagulated with Eliquis. Chest x-ray reveals evidence of mild edema/congestion and a small right effusion. White count 5.5. Hemoglobin 9.3. Platelet count 144. Sodium 138. Potassium 4.9. Creatinine 1.92. Lactic acid 2.4. Troponin 0.06. ProBNP 5310. Hoffman virus not detected. Urine culture pending. 06/12/2020 Patient is seen and evaluated in follow-up in the intensive care unit. He is a bit more awake and alert but remained disoriented to time and place. Speech is garbled. He is currently maintaining O2 saturations in the 90s on 15 L high flow nasal cannula. He is still on norepinephrine at 3 mcg/m. 0.9 normal s vargas at 50 MLS per hour. Amiodarone drip at 0.5 mg/m. He remains in atrial fibrillation. Chest x-ray reveals cardiomegaly with small bilateral effusions and associated atelectasis. Echocardiogram reveals moderate to severely impaired left ventricular systolic function with ejection fraction 30-35%. Urine culture pending. White count 11.4. Hemoglobin 9.7. Sodium 140. Potassium 5.2. Creatinine 1.72. Lactic acid 2.5. He remains on ceftriaxone. Anticoagulation per cardiology. 06/13/2020 Patient seen and evaluated post brief cardiac arrest, in the intensive care unit. Patient has been intubated post arrest. Restless. Pulling at IVs and bedding. Pulling off nonrebreather mask and nasal cannulas. Patient was being repositioned after nursing aids had provided personal care and was noted to have agonal respirations, PEA on the monitor, CPR started i mmediatly; 1 amp epi ordered and given, IV fluids wide open, repeat pulse check confirmed ROSC BP 104/25. Levophed started. Patient intubated and placed on vent with 14/250/5/100. Patient was biting on tube and trying to lift his head and was started on propofol . Pulse escalated to 122 and BP 87/34 started on levophed. Chest x-ray from this morning reveals small bilateral effusions. Cardiomegaly. Blood and urine cultures reveal no growth. White count 12.8. Hemoglobin 9.4. Platelet count 133. Sodium 141. Potassium 4.6. Creatinine 1.51. He remains on ceftriaxone. Continue bronchodilators. Patient was off pressors this morning and had been transitioned from IV amiodarone to oral. Anticoagulated with Eliquis. Family is requesting patient transferred to [facility]. Case management on board and making arrangements for transfer Objective - Vital Signs Vital signs: Vital Signs Temp 98.2 F 06/13/20 08:00 Pulse 77 06/13/20 10:00 Resp 23 06/13/20 10:00 BP 98/73 06/13/20 10:00 Pulse Ox 88 L 06/13/20 10:00 Intake & Output 06/12/20 06/13/20 06/13/20 18:59 06:59 18:59 Intake Total 262.788 649.727 46.639 Output Total 308 550 70 Balance -45.212 99.727 -23.361 Weight 70 kg Intake: IV 230 410 20 Sodium Chloride 0.9% 1, 80 360 20 000 ml @ 10 mls/hr IV . Q24H [facility] Rx#:[id number] Sodium Chloride 0.9% 1, 100 000 ml @ 100 mls/hr IV . Q10H [facility] Rx#:[id number] cefTRIAXone 1 gm In 50 50 Sodium Chloride 0.9% 50 ml @ 100 mls/hr IVPB Q12HR [facility] Rx#:[id number] Intake, IV Titration 32.788 239.727 26.639 Amount Amiodarone 450 mg In 239.727 Dextrose 5% in Water 250 ml @ 0.5 MG/MIN 16.667 mls/hr IV .Q15H [facility]O Rx#: [id number] Norepinephrine 32 mg In 32.788 26.639 Sodium Chloride 0.9% 218 ml @ 0.05 MCG/KG/MIN 1. 382 mls/hr IV .Q24H [facility]O Rx#:[id number] Output: Urine 308 550 70 Other: Voiding Method Indwelling Catheter Indwelling Catheter Indwelling Catheter - Exam GENERAL: The patient is alert and oriented x3, not in any acute distress. Well developed, well nourished. HEENT: Pupils are round and equally reacting to light. EOMI. No scleral icterus. No conjunctival pallor. Normocephalic, atraumatic. No pharyngeal erythema. No thyromegaly. CARDIOVASCULAR: S1 and S2 present. No murmurs, rubs, or gallops. PULMONARY: Chest is clear to auscultation, no wheezing or crackles. ABDOMEN: Soft, nontender, nondistended, normoactive bowel sounds. No palpable o rganomegaly. MUSCULOSKELETAL: No joint swelling or deformity. EXTREMITIES: No cyanosis, clubbing, or pedal edema. NEUROLOGICAL: Gross neurological examination did not reveal any focal deficits. SKIN: No rashes. No petechiae - Labs CBC & Chem 7: 06/13/20 03:37 06/13/20 03:37 Labs: Abnormal Lab Results - Last 24 Hours (Table) 06/12/20 06/12/20 06/13/20 Range/Units 11:51 18:04 00:26 WBC (3.8-10.6) k/uL RBC (4.30-5.90) m/uL Hgb (13.0-17.5) gm/dL Hct (39.0-53.0) % MCV (80.0-100.0) fL Plt Count (150-450) k/uL Neutrophils # (1.3-7.7) k/uL Chloride (98-107) mmol/L Carbon Dioxide (22-30) mmol/L BUN (9-20) mg/dL Creatinine (0.66-1.25) mg/dL Glucose (74-99) mg/dL POC Glucose (mg/dL) 107 H 102 H 114 H (75-99) mg/dL Calcium (8.4-10.2) mg/dL 06/13/20 06/13/20 06/13/20 Range/Units 03:37 03:37 06:48 WBC 12.8 H (3.8-10.6) k/uL RBC 3.00 L (4.30-5.90) m/uL Hgb 9.4 L (13.0-17.5) gm/dL Hct 30.3 L (39.0-53.0) % MCV 100.9 H (80.0-100.0) fL Plt Count 133 L (150-450) k/uL Neutrophils # 10.9 H (1.3-7.7) k/uL Chloride 113 H (98-107) mmol/L Carbon Dioxide 15 L (22-30) mmol/L BUN 39 H (9-20) mg/dL Creatinine 1.51 H (0.66-1.25) mg/dL Glucose 102 H (74-99) mg/dL POC Glucose (mg/dL) 122 H (75-99) mg/dL Calcium 7.8 L (8.4-10.2) mg/dL Microbiology - Last 24 Hours (Table) 06/11/20 05:50 Blood Culture - Preliminary Blood No Growth after 24 hours 06/11/20 05:50 Blood Culture - Preliminary Blood No Growth after 24 hours 06/11/20 05:14 Urine Culture - Final Urine,Voided Assessment and Plan Assessment: Acute and chronic atrial fibrillation with RVR , with elevated troponin acute kidney injury, mostly secondary to prerenal mild hematuria,and possible UTI follow-up urine culture Elevated lactic acid Hyperlipidemia Osteoarthritis History of COPD, no acute exacerbation History of GI bleed History of recurrent UTI History of rectal bleeding with rectal cancer legand 11/2019 status post reversal of colostomy on 04/2020 Plan: this is a pleasant 79 years old male who presents with .cardiac arrest status post brief CPR, A. fib and RVR, Labs and medication were reviewed.. Continue same treatment. Continue with symptomatic treatment. Resume home medication. Monitor lytes and vitals. DVT and GI prophylaxis. Further recommendations depends on the clinical course of the patient DVT prophylaxisEliquisGI Prophylaxis: Ppi Prognosis is guarded
[2020-06-13 17:58] LABS: Glucose,Whole Blood 120 mg/dL (75-99)
[2020-06-13] MEDS ORDERED: DEXTROSE 5% IN WATER 100 ML with AMIODARONE 150 MG IV ONE (18:12)
--- NOTE | 2020-06-13 18:21 | PN ---
PROGRESS NOTE I saw Mr. Cabezas this morning. He was actually more alert and communicated with me and was able to swallow. We switched him from IV amiodarone to oral. I noted that the echocardiogram revealed ejection fraction of 30% to 35% with more or less global decrease in contractility. There was no significant pulmonary hypertension and aortic valve mechanical prosthesis appeared to be fairly stable on the echocardiogram. However, at about 1:00 pm or so he had an episode of suddenly becoming unresponsive and on reviewing the rhythm strips, it appears that he had a sustained ventricular tachycardia and there was a brief CPR and he came back to underlying atrial fibrillation with controlled rate. In the process he was intubated. His family was informed. I spoke to the family, specifically his by phone and then I came in to see him and talk to his and daughter. I explained to them that cardiomyopathy is the underlying substrate and ventricular arrhythmia is consequent to that. Potassium level is good. Magnesium yesterday was good. The QT is not prolonged. I will obtain a 12-lead EKG and get a magnesium level as well as a potassium level. The patient's family wished that he should go to a [facility] and they are requesting a transfer and Dr. Alvarado is facilitating it. I explained to them that he is currently intubated and relatively unstable. We will keep a close eye on him, but we will do whatever their wishes are as long as patient is able to be transferred without incident. Prognosis remains poor overall. We will keep a close eye on him. Continue supportive care. He is on a small dose of Levophed and amiodarone bolus and drip also will be resumed. I had actually switched the drip from IV to oral this morning after he was able to swallow. Prognosis remains guarded. Patient therefore has an ejection fraction of 30-35% with a cardiomyopathic process and ventricular tachycardia that was symptomatic with unresponsiveness. Prognosis remains guarded. MMODL / IJN: [id number] /
[2020-06-13 20:36] VITALS: RESP 16; TEMP 98.4
[2020-06-13] MEDS ORDERED: CHLORHEXIDINE GLUCONATE 15 ML CUP MUCOUS MEM SCH (21:00)
[2020-06-13 21:46] VITALS: BP 107/80; PULSE 79
[2020-06-14] MEDS ORDERED: AMIODARONE 450 MG in DEXTROSE 5% IN WATER 250 ML IV SCH ×2 (00:30)
== END 2020-06-13 21:45 | disposition short-term general hospital (02) | DRG 308 ==
LOC: EC 04:16 → 2SICU 05:45
PROVIDERS: ADMIT Hospitalist; ATTEND Hospitalist
PROC: 3E033XZ Introduction of Vasopressor into Peripheral Vein, Percutaneous Approach (ICD-10-PCS; principal; 2020-06-11)
DX: I48.20 Chronic atrial fibrillation, unspecified (principal); I50.23 Acute on chronic systolic (congestive) heart failure; I46.2 Cardiac arrest due to underlying cardiac condition; J96.01 Acute respiratory failure with hypoxia; E43 Unspecified severe protein-calorie malnutrition; J98.11 Atelectasis; N17.9 Acute kidney failure, unspecified; N39.0 Urinary tract infection, site not specified; I47.2 Ventricular tachycardia; I42.9 Cardiomyopathy, unspecified; J43.9 Emphysema, unspecified; E78.5 Hyperlipidemia, unspecified; E86.0 Dehydration; F03.90 Unspecified dementia, unspecified severity, without behavioral disturbance, psychotic disturbance, mood disturbance, and anxiety; F43.10 Post-traumatic stress disorder, unspecified; I27.20 Pulmonary hypertension, unspecified; M19.90 Unspecified osteoarthritis, unspecified site; Z68.23 Body mass index [BMI] 23.0-23.9, adult; Z79.01 Long term (current) use of anticoagulants; Z82.49 Family history of ischemic heart disease and other diseases of the circulatory system; Z83.3 Family history of diabetes mellitus; Z85.048 Personal history of other malignant neoplasm of rectum, rectosigmoid junction, and anus; Z87.440 Personal history of urinary (tract) infections; I95.9 Hypotension, unspecified; Z20.822 Contact with and (suspected) exposure to COVID-19; Z87.891 Personal history of nicotine dependence; Z95.2 Presence of prosthetic heart valve; Z96.641 Presence of right artificial hip joint; Z98.42 Cataract extraction status, left eye; Z98.41 Cataract extraction status, right eye; M47.9 Spondylosis, unspecified; Z80.9 Family history of malignant neoplasm, unspecified; R15.9 Full incontinence of feces; R79.89 Other specified abnormal findings of blood chemistry
CPT/HCPCS: 36415; 36600; 71045; 74018; 80048; 80053; 80061; 81001; 82550; 82553; 82805; 83036; 83605; 83735; 83880; 84100; 84484; 85025; 85610; 85730; 87040; 87086; 87635; 92950; 93005; 93306; 94002; 94640; 96361; 96365; 96375; 96376; 99285